=== PATIENT | male | born 1965 | race Caucasian/White ===

== ENCOUNTER 2017-12-12 19:00 | Inpatient (IN) | payer OTHER ==
[2017-12-12] MEDS ORDERED: Morphine 10 MG/ML VIAL ONE (19:43)
[2017-12-12] MEDS ORDERED: Pantoprazole 40 MG VIAL ONE (19:43)
[2017-12-12] MEDS ORDERED: Ondansetron HCl/PF 4 MG/2 ML Vial ONE (19:43)
[2017-12-12 19:45] LABS: #Basophils 0.1 thou/uL (0.0-0.2); #Eosinphils 0.1 thou/uL (0.0-0.7); #Lymphocytes 1.5 thou/uL (1.20-3.40); #Monocytes 0.8 thou/uL (0.11-0.59); #Neutrophils 8.2 thou/uL (1.40-6.50); %Basophils 0.7 % (0.0-1.0); %Eosinophils 0.9 % (0.0-10.0); %Lymphocytes 14.3 % (21.0-51.0); %Monocytes 7.2 % (0.0-10.0); %Neutrophils 76.8 % (42.0-75.0); Hemoglobin 16.4 g/dL (14.0-18.0); Mean Corpuscular HGB CONC 34.2 g/dL (32.0-36.0); Mean Corpuscular Hemoglobin 29.2 pg (27.0-31.0); Mean Corpuscular Volume 85.6 fl (80.0-94.0); Platelet Count 247 thou/uL (130-400); RBC Distribution Width 12.1 % (11.5-14.5); Red Blood Cell (RBC) Count 5.61 mill/uL (4.70-6.10); White Blood Cell (WBC) Count 10.6 thou/uL (4.8-10.8)
--- NOTE | 2017-12-12 19:54 | RAD ---
PORTABLE UPRIGHT FRONTAL CHEST RADIOGRAPH 12/12/17 COMPARISON: None. HISTORY: Chest pain. FINDINGS: Heart and mediastinal contours demonstrate mild prominence of the cardiac silhouette with no pneumoth orax, pleural fluid, focal consolidation, or alveolar edema. IMPRESSION: No focal consolidation or alveolar edema. POS: [facility]
[2017-12-12 19:59] LABS: ALT (SGPT) 242 U/L (8-55); AST (SGOT) 308 U/L (5-34); Albumin 4.3 g/dL (3.5-5.0); Alkaline Phosphatase 71 U/L (40-150); Anion Gap 19 mmol/L (10-20); BUN (Urea Nitrogen) 17 mg/dL (8.4-25.7); Bilirubin, Total 2.6 mg/dL (0.2-1.2); CK (CPK) 65 U/L (30-200); CKMB 1.4 ng/mL (0-6.6); Calc. Creatinine Clearance 0 mL/min (70-130); Calcium 9.6 mg/dL (7.8-10.44); Carbon Dioxide 21 mmol/L (22-29); Chloride 106 mmol/L (98-107); Estimated GFR-MDRD 68; Globulin 2.9 g/dL (2.4-3.5); Glucose 158 mg/dL (70-105); Protein, Total 7.2 g/dL (6.0-8.3); Sodium 142 mmol/L (136-145); Troponin I Less than 0.010 ng/mL (< 0.028)
[2017-12-12 19:59] LABS: Bilirubin Negative (Negative); Blood, Urine Negative (Negative); Clarity Clear (Clear); Glucose, Urine (Dipstick) Negative (Negative); Leukocyte Negative (Negative); Nitrite Negative (Negative); Protein, Urine (Dipstick) 30 mg/dL (Neg-Trace); pH, Urine 5.5 (5.0-9.0)
[2017-12-12 20:00] LABS: Bacteria/HPF Rare-Few HPF (None Seen); RBC/HPF None Seen HPF (0-3); Squamous Epithelial None Seen HPF (0-3); WBC/HPF None Seen HPF (0-3)
[2017-12-12] MEDS ORDERED: Ketorolac Tromethamine 30 MG/ML VIAL ONE (20:47)
[2017-12-12 21:12] LABS: Lipase 2184 U/L (8-78)
--- NOTE | 2017-12-12 22:03 | ULT ---
RIGHT UPPER QUADRANT ULTRASOUND 12/12/17 COMPARISON: None. HISTORY: Epigastric pain radiating to the back. TECHNIQUE: Multiplanar ramos scale sonographic imaging of the right upper quadrant obtained. FINDINGS: The pancreas is obscured by bowel gas. The hepatic parenchyma is heterogeneous and echogenic, suggest ing steatosis. No focal liver lesion is evident. There is sludge within the gallbladder lumen. In addition, there are numerous stones within the gallb ladder lumen, including a nonmobile stone in the region of the gallbladder neck. Gallbladder wall is normal in thickness. No pericholecystic fluid is seen. The common bile duct is mildly prominent/upper limits of normal in diameter, measuring just under 7 mm. The shiftman reports a negative Pendleton's sign but does indicate that the patient is on pain medica tion, which can lead to a false negative. Thus, clinical correlation is essential. Right kidney measures 11.1 cm in craniocaudal dimension and demonstrates no hydronephrosis. Echogenic focus within kidney may represent a punctate subcentimeter stone. IMPRESSION: 1. Numerous gallstones, including a nonmobile stone within the gallbladder neck. No gallbladder wall thickening or pericholecystic fluid. Veneer Stock Grader reports a negative Pendleton's sign but the patien t is on pain medication. If there is high clinical concern for acute cholecystitis, a followup hepato biliary scan may be beneficial. 2. Upper limits of normal/mildly prominent CBD. Correlation with LFTs suggested. POS: [facility]
[2017-12-12] MEDS ORDERED: Sodium Chloride 0.9% 1,000 ML IV SCH (22:37)
[2017-12-12] MEDS ORDERED: Ondansetron ODT 4 MG TAB SL PRN (22:37)
[2017-12-12] MEDS ORDERED: Ondansetron HCl/PF 4 MG/2 ML Vial IVP PRN (22:37)
[2017-12-12] MEDS ORDERED: Morphine 5 MG/ML SYRINGE SLOW IVP PRN (22:38)
[2017-12-12 22:42] VITALS: BMI 31.1
[2017-12-12] MEDS ORDERED: Fentanyl 100 MCG/2 ML VIAL SLOW IVP SCH (23:15)
--- NOTE | 2017-12-13 01:27 | PDOC.FPRHP ---
- History of Present Illness Chief Complaint: abdominal pain History of Present Illness: 52 yo male with history of HTN presented to outside ER for severe abdominal pain. Reports severe pain without improvement at 1600 today. Initially thought it was reflux. Took OTC dose of Tums but did not improve. Pain was so bad he reported difficulty with deep breathing. Worsened also with movement. Pain located ini epigastric region and radiates to sides and back. Described as sharp and stabbing. 8 to 910. Denies N/V, F/C, diarrhea. Also reports a recent increase in frequency of indigestion. Has been controlled with OTC antacids. Discussed code status with patient. Question addressed. Patient request to be full code. ED Course: Made NPO. Received NS fluid bolus. Toradol and morphine provided for pain relief. Labs and RUQ ultrasound performed. - Allergies/Adverse Reactions Allergies Allergy/AdvReac Type Severity Reaction Status Date / Time lisinopril AdvReac Mild Cough Verified 12/13/17 01:35 - Home Medications Medication Instructions Recorded Confirmed Type No Known [No Known] 12/12/17 12/12/17 History - History PMHx: HTN (Not taking Lisinopril due to cough. Does not see regular MD), GERD PSHx: Left knee, Right inguinal hernia repair FHx: Mother: Heart dz, DM. Father: Multiple myeloma Social: . Social alcohol use. Denies tobacco use and drug use. - Review of Systems General: reports: weight/appetite/sleep changes. denies: fever/chills, fatigue Eyes: denies: eye pain, vision changes ENT: denies: nasal congestion, rhinorrhea Respiratory: reports: shortness of breath. denies: cough, congestion Cardiovascular: denies: chest pain, palpitation, edema, orthopnea Gastrointestinal: reports: abdominal pain. denies: nausea, vomiting, diarrhea, constipation, GI bleeding Genitourinary: denies: incontinence, dysuria Skin: denies: rashes, lesions, jaundice Musculoskeletal: denies: pain, tenderness, stiffness, swelling Neurological: denies: numbness, syncope, weakness Psychological: denies: anxiety, depression - Vital signs BP: 161/110 HR: 80 RR: 18 Tmax: 98.3 Pox: 93% on 2L Wt: 104.3 kg - Physical Exam Constitutional: NAD, awake, alert and oriented HEENT: normocephalic and atraumatic, EOMI Neck: supple Heart: RRR, no murmurs/rubs/gallops, pulses present, no edema Lungs: CTAB, no respiratory distress, no wheezing Abdomen: soft -Abdomen: Tender to palpation in epigastric region. Mild anticipatory guarding. Musculoskeletal: normal structure, normal tone Neurological: no focal deficit Skin: no rash/lesions, capillary refill <2 seconds Heme/Lymphatic: no purpura, no petechia Psychiatric: normal mood and affect, good judgment and insight FMR H&P: Results - Labs Result Diagrams: 12/13/17 04:57 12/13/17 04:57 Lab results: WBC 10.6 thou/uL (4.8-10.8) 12/12/17 19:30 Hgb 16.4 g/dL (14.0-18.0) 12/12/17 19:30 Hct 48.0 % (42.0-52.0) 12/12/17 19:30 MCV 85.6 fl (80.0-94.0) 12/12/17 19:30 Plt Count 247 thou/uL (130-400) 12/12/17 19:30 Neutrophils % 76.8 % (42.0-75.0) H 12/12/17 19:30 Sodium 142 mmol/L (136-145) 12/12/17 19:30 Potassium 4.0 mmol/L (3.5-5.1) 12/12/17 19:30 Chloride 106 mmol/L (98-107) 12/12/17 19:30 Carbon Dioxide 21 mmol/L (22-29) L 12/12/17 19:30 BUN 17 mg/dL (8.4-25.7) 12/12/17 19:30 Creatinine 1.12 mg/dL (0.7-1.3) 12/12/17 19:30 Glucose 158 mg/dL (70-105) H 12/12/17 19:30 Calcium 9.6 mg/dL (7.8-10.44) 12/12/17 19:30 Total Bilirubin 2.6 mg/dL (0.2-1.2) H 12/12/17 19:30 AST 308 U/L (5-34) H 12/12/17 19:30 ALT 242 U/L (8-55) H 12/12/17 19:30 Alkaline Phosphatase 71 U/L (40-150) 12/12/17 19:30 Creatine Kinase 65 U/L (30-200) 12/12/17 19:30 CK-MB (CK-2) 1.4 ng/mL (0-6.6) 12/12/17 19:30 Serum Total Protein 7.2 g/dL (6.0-8.3) 12/12/17 19:30 Albumin 4.3 g/dL (3.5-5.0) 12/12/17 19:30 Lipase 2184 U/L (8-78) H 12/12/17 19:30 Urine Ketones Negative mg/dL (Negative) 12/12/17 19:46 Urine Blood Negative (Negative) 12/12/17 19:46 Urine Nitrite Negative (Negative) 12/12/17 19:46 Ur Leukocyte Esterase Negative (Negative) 12/12/17 19:46 Urine RBC None Seen HPF (0-3) 12/12/17 19:46 Urine WBC None Seen HPF (0-3) 12/12/17 19:46 Ur Squamous Epith Cells None Seen HPF (0-3) 12/12/17 19:46 Urine Bacteria Rare-Few HPF (None Seen) 12/12/17 19:46 Additional comment: RUQ U/S: Cholelithiasis with mildly prominent CBD - Radiology Interpretation Chest x-ray Status: image reviewed by me, report reviewed by me Additional comment: No acute abnormalities FMR H&P: A/P - Problem List (1) Acute pancreatitis Current Visit: Yes Status: Acute Code(s): K85.90 - ACUTE PANCREATITIS WITHOUT NECROSIS OR INFECTION, UNSP (2) HTN (hypertension) Current Visit: Yes Status: Chronic Code(s): I10 - ESSENTIAL (PRIMARY) HYPERTENSION Qualifiers: Hypertension type: essential hypertension Qualified Code(s): I10 - Essential (primary) hypertension (3) GERD (gastroesophageal reflux disease) Current Visit: Yes Status: Chronic Code(s): K21.9 - GASTRO-ESOPHAGEAL REFLUX DISEASE WITHOUT ESOPHAGITIS - Plan 1. Acute pancreatitis - Likely 2/2 gallstones; RUQ showed cholelithiasis with mildly enlarge CBD - TG 109 - Ca wnl - NPO - NS IVF at 225 ml/hr - Lipase >8000, 2184 - Bowel rest; advance diet once abdominal pain subsides - Pain control with fentanyl - Will likely need general surgery consult 2. HTN - Previously on lisinopril but was not taking it regularly due to cough - d/c lisinopril and add amlodipine for treatment of HTN - Monitor BP 3. GERD - Generally well controlled on OTC antacids 4. Acute hypoxia - Likely 2/2 shallow breathing - Encourage use of incentive spirometer - Wean O2 as appropriate Disposition/LOS: Admit to medical unit. Anticipate 2-3 day stay. FMR H&P: Upper Level - Plan Date/Time: 12/13/17 0125 IJelani MD have evaluated this patient and agree with findings/plan as outlined by chief internal auditor resident. Pertinent changes/additions are listed here. 52 yo male pmhx HTN presents to outside ER for severe, 9/10 epigastric abdominal pain radiating to flank and back that initially started around 1600 today. Characterized as sharp and stabbing. Exacerbated by position change and deep breathing; unrelieved by OTC tums. No associated N/V, F/C, or diarrhea. No prior episode of similar type symptoms. PE: Gen: NAD, AAOx3 ENT: nasal cannula in place CV: rrr, no m/g/r Lungs: CTAB, non-labored Abd: soft, severe TTP epigastric region, some anticipatory guarding Ext: no c/c/e A/P: 1) Acute mild gallstone pancreatitis: direct admission to medical. Lipase 2184. Bisap score 0. Low Connie and Apache[place] scores but will continue to monitor vitals. Keep NPO and continue IVF. Advance diet after abdominal pain subsides. Prn IV pain medication. Triglycerides high normal. No history of heavy alcohol or use of provoking medications. RUQ US revealed numerous gallstones with mildly prominent CBD. Trend CMPs. Will likely consult surgery for eventual cholecystectomy. 2) HTN: pt takes PAULA-I periodically but sounds like he suffers from associated cough with use; may need to be started on alternative agent while here and BPs are being monitored Attending Addendum - Attending Addendum Date/Time: 12/13/17 0140 I personally evaluated the patient and discussed the management with Dr. Parekh and Dr. Maldonado I agree with the History, Examination, Assessment and Plan documented above with any addition or exceptions noted below. 52 yo male with untreated HTN presents to outside ER for evaluation of severe, worsening epigastric pain found to have acute pancreatitis. At present pain well controlled. Not in any distress. VS stable. Afebrile. VS reviewed. BP elevated. Labs reviewed. Elevated LFTs. Lipase improved from outside ER. PE unchanged from documented above. A/P: Will admit on medical. Patient stable. Mild pancreatitis. Keep NPO. Control pain with IV medication. Possible related to gallstone pancreatitis. Cholelathiasis in gallbladder. Mild CBD dilation. Possibly recently passed stone or intermittently blocked duct. Triglycerides not extremely abnormal. No recent viral illnesses. No significant change in medication other than use of OTC antacids. Will likely need gen surg follow up. Barbie
[2017-12-13] MEDS ORDERED: Ondansetron HCl/PF 4 MG/2 ML Vial IVP PRN (01:36)
[2017-12-13] MEDS ORDERED: Promethazine HCl 25 MG/ML VIAL IM/IV PRN (01:36)
[2017-12-13] MEDS: Sodium Chloride 0.9% 1,000 ML IV SCH ×5 (02:21→20:20)
[2017-12-13] MEDS: Fentanyl 100 MCG/2 ML VIAL SLOW IVP PRN ×8 (02:43→22:14)
[2017-12-13 05:11] LABS: #Lymphocytes 0.9 thou/uL (1.20-3.40); #Monocytes 0.9 thou/uL (0.11-0.59); #Neutrophils 12.2 thou/uL (1.40-6.50); %Basophils 0.2 % (0.0-1.0); %Eosinophils 0.3 % (0.0-10.0); %Lymphocytes 6.3 % (21.0-51.0); %Monocytes 6.1 % (0.0-10.0); %Neutrophils 87.1 % (42.0-75.0); Hemoglobin 16.6 g/dL (14.0-18.0); Mean Corpuscular Hemoglobin 30.8 pg (27.0-31.0); Mean Corpuscular Volume 90.6 fl (80.0-94.0); Mean Platelet Volume 8.2 fL (7.4-10.4); Platelet Count 236 thou/uL (130-400); RBC Distribution Width 12.7 % (11.5-14.5); Red Blood Cell (RBC) Count 5.39 mill/uL (4.70-6.10); White Blood Cell (WBC) Count 14.1 thou/uL (4.8-10.8)
[2017-12-13 05:48] LABS: ALT (SGPT) 369 U/L (8-55); AST (SGOT) 296 U/L (5-34); Albumin 4.1 g/dL (3.5-5.0); Alkaline Phosphatase 74 U/L (40-150); Anion Gap 11 mmol/L (10-20); BUN (Urea Nitrogen) 15 mg/dL (8.4-25.7); Bilirubin, Total 3.1 mg/dL (0.2-1.2); Calc. Creatinine Clearance 123 mL/min (70-130); Calcium 8.9 mg/dL (7.8-10.44); Carbon Dioxide 26 mmol/L (22-29); Cardiac Risk 4.1 (Less than 4.5); Chloride 107 mmol/L (98-107); Cholesterol 224 mg/dl (< 200 Desired); Estimated GFR-MDRD 77; Globulin 2.9 g/dL (2.4-3.5); Glucose 126 mg/dL (70-105); HDL Cholesterol 54 mg/dL (>60 Neg Risk); LDL Cholesterol, Calculated 149 mg/dL; Potassium 3.9 mmol/L (3.5-5.1); Sodium 140 mmol/L (136-145); Triglycerides 106 mg/dL (Less than 150)
[2017-12-13] MEDS: Amlodipine 5 MG TAB PO SCH (08:05)
[2017-12-13] MEDS ORDERED: FLU VACC QS2017-18 36 mo. & older 0.5 ML SYRINGE IM ONE (09:00)
[2017-12-13] MEDS ORDERED: HYDROmorphone 0.5 MG/0.5 ML SYRINGE SLOW IVP PRN (17:54)
[2017-12-13] MEDS ORDERED: Sodium Chloride 0.9% 1,000 ML IV SCH (18:00)
[2017-12-13 19:16] LABS: ALT (SGPT) 373 U/L (8-55); AST (SGOT) 196 U/L (5-34); Albumin 3.6 g/dL (3.5-5.0); Alkaline Phosphatase 71 U/L (40-150); Anion Gap 9 mmol/L (10-20); BUN (Urea Nitrogen) 10 mg/dL (8.4-25.7); Bilirubin, Total 4.5 mg/dL (0.2-1.2); Calc. Creatinine Clearance 150 mL/min (70-130); Calcium 8.4 mg/dL (7.8-10.44); Carbon Dioxide 25 mmol/L (22-29); Chloride 107 mmol/L (98-107); Estimated GFR-MDRD Greater than 90; Globulin 2.8 g/dL (2.4-3.5); Glucose 107 mg/dL (70-105); Potassium 4.4 mmol/L (3.5-5.1); Protein, Total 6.4 g/dL (6.0-8.3); Sodium 137 mmol/L (136-145)
[2017-12-13] MEDS: Enoxaparin Sodium 40 MG/0.4 ML SYRINGE SC SCH (20:12)
[2017-12-13] MEDS: HYDROmorphone 2 MG TAB PO PRN (21:08)
--- NOTE | 2017-12-13 23:21 | CON ---
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 after mashed potatoes and potato ch ips, epigastric and generalized upper abdominal pain. He presented to the emergency room. In the em ergency room, he was noted to have white count of 10, hemoglobin of 16. He had a liter of IV fluid i n the ER and has had 250 mL of saline, IV since that time. His bilirubin was noted be 2.6, this morn ing is 3.1. AST 308, this morning 296. ALT 242, this morning. 369. Alkaline phosphatase 71, this morning is 74. Lipase on admission yesterday 2184 at 7:30 and today 2849 this morning. Ultrasound o btained reveals 7-mm bile duct and multiple gallstones and sludge. Negative Pendleton's sign. The tess ent states his pain has not improved since admission. Upon the consultation, I asked Dr. Cadena to se e him and he has seen him. Tentative plans for an ERCP tomorrow after a more aggressive hydration to day. ALLERGIES: LISINOPRIL. TOBACCO: None. ALCOHOL: Rarely, last consume more than two weeks ago. MEDICATIONS: Amlodipine daily 5 mg. PAST SURGICAL HISTORY: Right inguinal hernia in the past. Knee surgery, colonoscopy middle and a ye ar ago, normal. REVIEW OF SYSTEMS: Ten point noncontributory. SOCIAL HISTORY: The patient and his are present. The patient states that they just moved from [place], [place] recently. PHYSICAL EXAMINATION: VITAL SIGNS: 6 feet tall, 229 pounds, 31 BMI. The patient is in obvious distress. 100 degrees leyla ier today, 99.5 degrees now, heart rate 95, respiratory rate 18, 157/95. SKIN: Not apparent jaundice. LYMPHATICS: No lymphadenopathy. Neck, axillary or groin. NEUROLOGICAL: No focal neurological deficits. HEAD, EARS, EYES, NOSE AND THROAT: Unremarkable. Sclerae are nonicteric. LUNGS: Clear to auscultation. CARDIAC: Regular rate and rhythm without murmur or gallop. ABDOMEN: Soft, tenderness diffusely, more severe upper abdomen and epigastrium. EXTREMITIES: Unremarkable. LABORATORIES: As noted above. ASSESSMENT AND PLAN: 1. Severe pancreatitis. This is secondary to biliary disease. We would recommend ERCP most likely followed by laparoscopic cholecystectomy. He if does improve and his liver chemistries improved, con sideration for laparoscopic cholecystectomy, cholangiograms and an ERCP pending. Cholangiograms coul d be undertaken, but await and clinical course. I have tentatively scheduled him for laparoscopic ch olecystectomy after Dr. Cadena, completes ERCP tomorrow. However, if his pancreatitis does not improv e, I may defer cholecystectomy for another 24-48 hours. Will base this decision on his clinical cour se and condition and laboratories. Risks of infection, bleeding, visceral and biliary injury and ope n procedure, etcetera discussed and he consents. Questions answered. 2. Hypertension.
[2017-12-14] MEDS: Fentanyl 100 MCG/2 ML VIAL SLOW IVP PRN ×2 (00:09→04:35)
[2017-12-14] MEDS: Acetaminophen 1,000 MG in Premix Bag 1 BAG IVPB SCH ×5 (00:11→23:54)
--- NOTE | 2017-12-14 00:49 | CON ---
DATE OF CONSULTATION: 12/13/2017 REASON FOR CONSULTATION: Abnormal LFTs, possible choledocholithiasis, gallstone pancreatitis. CONSULTING PHYSICIAN: Dr. Gregory Longoria. HISTORY OF PRESENT ILLNESS: The patient is a 52-year-old male with a past medical history of hyperte nsion who presented with acute onset of abdominal pain. He states that he was in his usual state of health until approximately yesterday afternoon. He experienced the acute onset of right upper quadra nt abdominal pain characterized as a sharp/stabbing type sensation, 8/10 in severity with radiation t o the midepigastric region, left, and right flanks. He also has some associated subjective fever and chills during that time. With the worsening of his abdominal pain it prompted him to [facility] with admission in the ER where he was noted to have significant elevation in his LFTs as well as a lipase of approximately 2800 consistent with pancreatitis. He was subsequently given [address] of normal saline fluid bolus and admitted to the hospital for further evaluation. Of note, while he was at home, he had no clear alleviating or exacerbating factors. They were not ameliorated with the use of PPI or oral antacids. REVIEW OF SYSTEMS: Ten category review of systems was obtained with all responsive negative except f or the pertinent positives listed in the HPI. PAST MEDICAL HISTORY: As per HPI. PAST SURGICAL HISTORY: Knee surgery and right inguinal hernia repair. FAMILY HISTORY: Multiple myeloma (father), coronary artery disease (mother), Crohn's disease (sister ). SOCIAL HISTORY: Denies any tobacco or illicit drug use. Drinks approximately 1-2 drinks per month. PHYSICAL EXAMINATION: VITAL SIGNS: Temperature of 98.6, pulse 90, blood pressure 157/98, respiratory rate 20, satting 92% on 2 liters nasal cannula. GENERAL: The patient is lying in bed in moderate distress, visibly holding his abdomen. Alert and o riented x4. NECK: Supple. No JVD noted. CARDIOVASCULAR: Regular rate and rhythm with no discernible murmurs, gallops, or rubs. RESPIRATORY: Clear to auscultation bilaterally with no discernible wheezes or rales. ABDOMEN: Hypoactive bowel sounds, soft. No distention. Exquisite tenderness to palpation with both light and deep palpation in all abdominal quadrants, especially the midepigastric region. LABORATORY DATA: CBC with a white blood cell count of 14.1, hemoglobin 16.6, hematocrit 48.8, platel ets 236. Chemistry with a sodium of 140, potassium 3.9, chloride 107, CO2 26, BUN 15, creatinine 1.0 1, glucose 126, AST 296, ALT 369, alkaline phosphatase 74, total bilirubin 3.1, albumin 4.1, lipase 2 849. ASSESSMENT AND PLAN: The patient is a 52-year-old male with past medical history of hypertension pre senting with probable gallstone pancreatitis. Gallstone pancreatitis. Patient is presenting with acute onset of midepigastric and right upper quad rant abdominal pain with sharp stabbing nature and no clear alleviating or exacerbating factors. Upo n arrival to the ER, routine labs showed primarily an obstructive type pattern as well as significant ly elevated lipase consistent with a diagnosis of gallstone pancreatitis. The right upper quadrant u ltrasound obtained during this admission also showed numerous gallstones within the gallbladder and m ild dilatation of the common bile duct at 7 mm. At this point, with his imaging and laboratory findi ngs, it is strongly concerning for gallstone pancreatitis, but could be due to pancreatitis from othe r means with inflammation from the irritation of the pancreas itself (much less likely). At this poi nt in time, he would benefit from ERCP evaluation and possible extraction of choledocholithiasis. RECOMMENDATIONS: 1. Maintain the patient on n.p.o. status within preparation for procedure tomorrow or if needed more urgently overnight. 2. We will continue to trend LFTs. 3. We will plan for ERCP tomorrow morning with possible sphincterotomy and stone extraction 4. Pain control per primary team. 5. Agree with antibiotic administration as part of prophylaxis for ascending cholangitis. We will continue to follow. Please call with any questions.
[2017-12-14] MEDS: Sodium Chloride 0.9% 1,000 ML IV SCH ×7 (01:58→22:56)
[2017-12-14] MEDS: HYDROmorphone 2 MG TAB PO PRN ×3 (01:58→15:00)
[2017-12-14 05:59] LABS: #Eosinphils 0.1 thou/uL (0.0-0.7); #Monocytes 1.4 thou/uL (0.11-0.59); #Neutrophils 14.9 thou/uL (1.40-6.50); %Basophils 0.2 % (0.0-1.0); %Eosinophils 0.4 % (0.0-10.0); %Lymphocytes 5.7 % (21.0-51.0); %Monocytes 8.2 % (0.0-10.0); %Neutrophils 85.6 % (42.0-75.0); Hemoglobin 15.7 g/dL (14.0-18.0); Mean Corpuscular HGB CONC 33.1 g/dL (32.0-36.0); Mean Corpuscular Hemoglobin 30.5 pg (27.0-31.0); Mean Corpuscular Volume 92.2 fl (80.0-94.0); Mean Platelet Volume 8.3 fL (7.4-10.4); Platelet Count 206 thou/uL (130-400); RBC Distribution Width 12.9 % (11.5-14.5); Red Blood Cell (RBC) Count 5.13 mill/uL (4.70-6.10); White Blood Cell (WBC) Count 17.4 thou/uL (4.8-10.8)
[2017-12-14 06:15] LABS: ALT (SGPT) 270 U/L (8-55); AST (SGOT) 86 U/L (5-34); Albumin 3.3 g/dL (3.5-5.0); Alkaline Phosphatase 69 U/L (40-150); Anion Gap 11 mmol/L (10-20); BUN (Urea Nitrogen) 10 mg/dL (8.4-25.7); Bilirubin, Total 3.8 mg/dL (0.2-1.2); Calc. Creatinine Clearance 162 mL/min (70-130); Calcium 8.1 mg/dL (7.8-10.44); Carbon Dioxide 20 mmol/L (22-29); Chloride 109 mmol/L (98-107); Estimated GFR-MDRD Greater than 90; Globulin 2.8 g/dL (2.4-3.5); Glucose 95 mg/dL (70-105); Lipase 649 U/L (8-78); Potassium 4.3 mmol/L (3.5-5.1); Protein, Total 6.1 g/dL (6.0-8.3); Sodium 136 mmol/L (136-145)
[2017-12-14] MEDS ORDERED: Iothalamate Meglumine 60% 50 ML VIAL FS ONE (07:50)
[2017-12-14] MEDS ORDERED: Indomethacin 50 MG SUPP ONE (08:04)
[2017-12-14] MEDS: Amlodipine 5 MG TAB PO SCH ×2 (08:53→11:28)
[2017-12-14] MEDS ORDERED: Indomethacin 50 MG SUPP PR SCH (09:00)
[2017-12-14] MEDS ORDERED: Ondansetron HCl/PF 4 MG/2 ML Vial IVP PRN ×2 (10:05→15:53)
[2017-12-14] MEDS ORDERED: Promethazine HCl 25 MG/ML VIAL SLOW IVP PRN (10:05)
[2017-12-14] MEDS ORDERED: Promethazine HCl 25 MG/ML VIAL IM PRN ×2 (10:05→15:53)
--- NOTE | 2017-12-14 10:22 | OP ---
DATE OF PROCEDURE: 12/14/2017 INDICATION FOR PROCEDURE: Abnormal LFTs and possible choledocholithiasis. PROCEDURE PERFORMED: Endoscopic retrograde cholangiopancreatography with balloon dilation, biopsy an d sphincterotomy. DESCRIPTION OF PROCEDURE: After the risks, and benefits were explained to the patient including risk s of bleeding, infection, perforation, reactions to anesthesia, pain and/or pancreatitis, informed co nsent was obtained. The patient was then taken back to the endoscopy suite where general anesthesia and intubation was performed with anesthesia assistance. The standard duodenal scope was then introd uced into the mouth with intubation of the esophagus, stomach and proximal small intestine with the f indings listed below. The patient tolerated the procedure well with no immediate perioperative compl ications. FINDINGS: EGD: The limited views that were obtained with the side-viewing scope, normal appearing m ucosa was seen in the proximal, mid and distal esophagus as well as the cardia, fundus, body, antrum and incisura of the stomach. However, upon entry into the duodenal bulb, innumerable, small, clean b ased superficial ulcerations without any high risk stigmata of bleeding were seen in the duodenal bul b, as well as the second portion of the duodenum. Also present was a high grade duodenal stricture p resent at the duodenal sweep that was unable to be traversed with the duodenoscope initially. A 12 m m balloon was then passed through the duodenoscope and using fluoroscopy, confirmed by positioning on the other side of the stricture. The balloon was then inflated to 12 mm through the stricture with adequate stretching of the stricture achieved. The balloon was then removed from the patient and the duodenoscope was then able to be advanced into the second portion of the duodenum. Biopsies were ta alejandro both of the duodenal bulb and random gastric biopsies for evaluation of H. pylori status as well as the origin of ulcerations. Once inside the second portion of the duodenum, the ampulla was identi fied with no purulent material flowing from it. Using a sphincterotome and guidewire, access to the ampulla and common bile duct was achieved. Once the guidewire was placed in adequate position, a cho langiogram was performed with no discernible stones initially seen. The sphincterotomy was then perf ormed with adequate cut in the 11 o'clock position of the ampulla and no evidence of active bleeding at which point the sphincterotome was removed and a 9-12 mm balloon was passed through the duodenosco pe and into the small intestine. It was then advanced into the common bile duct with occlusion chola ngiogram again not showing anything with the common bile duct measuring approximately 7-8 mm in size. Then, using the balloon itself, it was advanced into roughly the hilum. The balloon was inflated t o 9 mm and successive balloon sweeps were then performed. On the initial balloon sweep, some stone d ebris was obtained as well as a 7-8 mm black pigmented stone. Two further balloon sweeps were perfor med with no other stone debris or stones obtained. At the end of the procedure, additional fluorosco py was performed with adequate drainage of the biliary tree observed. All equipment was then removed with the procedure terminated and the patient transferred to the PACU. IMPRESSION: 1. Innumerable, small, superficial clean based ulcerations seen in the duodenal bulb and second port ion of the duodenum, status post biopsies for evaluation. 2. High grade duodenal stricture noted at the duodenal sweep, now status post dilation with a 12 mm esophageal balloon. 3. Successful sphincterotomy with balloon extraction of a 7-8 mm black pigmented stone. RECOMMENDATIONS: 1. Continue to monitor clinically for signs of post-ERCP pancreatitis. 2. We will follow up on biopsy results with further therapy guided by the results. 3. We defer to General Surgery service as to the timing for cholecystectomy during this admission in light of acute pancreatitis. 4. Would continue with IV fluid administration at 250 mL per hour. 5. Agree with antibiotic administration at this time. We will continue to follow. Please call with any questions.
--- NOTE | 2017-12-14 10:33 | PDOC.FM ---
- Subjective Subjective: 52 yo M here with acute gallstone pancreatitis. He states that he pain is reasonably well controlled today with a pain of 5-6. He is currently NPO and awaiting ERCP and lap craig. There were no acute events over night. - Objective Vital Signs & Weight: Vital Signs (12 hours) Temp Pulse Resp BP BP Pulse Ox 12/14/17 08:53 85 12/14/17 07:04 98.7 F 85 18 142/86 H 91 L 12/14/17 04:00 98.3 F 87 22 H 154/95 H 91 L 12/14/17 00:00 98.1 F 89 22 H 153/89 H 91 L Weight Weight 104.3 kg I&O: 12/13/17 12/14/17 12/15/17 06:59 06:59 06:59 Intake Total 2425 Output Total 1000 Balance 1425 Result Diagrams: 12/14/17 05:21 12/14/17 05:21 <Fletcher Khan - Last Filed: 12/14/17 10:31> - Objective Vital Signs & Weight: Vital Signs (12 hours) Temp Pulse Resp BP BP Pulse Ox 12/14/17 11:28 85 12/14/17 07:04 98.7 F 85 18 142/86 H 91 L 12/14/17 04:00 98.3 F 87 22 H 154/95 H 91 L 12/14/17 00:00 98.1 F 89 22 H 153/89 H 91 L Weight Weight 104.3 kg I&O: 12/13/17 12/14/17 12/15/17 06:59 06:59 06:59 Intake Total 2425 Output Total 1000 Balance 1425 Result Diagrams: 12/14/17 05:21 12/14/17 05:21 <Jinny García - Last Filed: 12/14/17 11:44> Phys Exam - Physical Examination Constitutional: NAD HEENT: PERRLA, moist MMs Neck: no JVD Respiratory: clear to auscultation bilateral Cardiovascular: RRR, no significant murmur TTP throughout. Worst at epigastrum. BS x4 Musculoskeletal: no edema Lymphatic: no nodes Psychiatric: normal affect, A&O x 3 Skin: no rash, normal turgor <Fletcher Khan - Last Filed: 12/14/17 10:31> Dx/Plan (1) Acute pancreatitis Code(s): K85.90 - ACUTE PANCREATITIS WITHOUT NECROSIS OR INFECTION, UNSP Status: Acute QualifierTitle: Pancreatitis type: biliary (2) GERD (gastroesophageal reflux disease) Code(s): K21.9 - GASTRO-ESOPHAGEAL REFLUX DISEASE WITHOUT ESOPHAGITIS Status: Chronic QualifierTitle: Esophagitis presence: esophagitis presence not specified Qualified Code(s): K21.9 - Gastro-esophageal reflux disease without esophagitis (3) HTN (hypertension) Code(s): I10 - ESSENTIAL (PRIMARY) HYPERTENSION Status: Chronic QualifierTitle: Hypertension type: essential hypertension Qualified Code( s): I10 - Essential (primary) hypertension - Plan Plan: 1. Gallstone pancreatitis - s/p ERCP that was performed this morning. Duodenal ulcers were biopsied. Sphincter dilation performed. - Continue abx - Will monitor vitals and CBC for signs of infection - Continue IVF @ 250 - Monitor I/O - Ransons at 48 hours - 2 2. Cholecystitis - pt scheduled for lap craig today 3. HTN - elevated dt pain - monitor vitals as above <Fletcher Khan - Last Filed: 12/14/17 10:31> Attending Addendum - Attending Addendum Date/Time: 12/14/17 1143 I personally evaluated the patient and discussed the management with Dr. Khan. I agree with the History, Examination, Assessment and Plan documented above with any addition or exceptions noted below. Patient resting comfortably following ercp. Dr. Longoria will be doing an lap craig. Pt on levaquin. Continue to trend wbc. Will get blood cultures if patient spikes a fever. <Jinny García - Last Filed: 12/14/17 11:44>
--- NOTE | 2017-12-14 11:32 | RAD ---
ERCP: Date: 12/14/17 HISTORY: Gallstones. FINDINGS/IMPRESSION: Three spot fluoroscopic intraoperative images of the right upper quadrant during an ERCP demonstrate opacification of the common bile duct, hepatic ducts, and their branches without filling defects. A c ystic duct (remnant?) is also opacified on a single image. POS: ADELIA
[2017-12-14] MEDS ORDERED: PHENYLEPHRINE-NS 100 MCG/ML 10 ML SYRINGE ONE (15:47)
[2017-12-14] MEDS ORDERED: ePHEDrine/0.9% NaCl/PF SYRINGE 50 mg/10 ml ONE (15:47)
[2017-12-14] MEDS ORDERED: Propofol 200 MG/20 ML VIAL ONE (15:47)
[2017-12-14] MEDS ORDERED: Succinylcholine Chloride 20 MG/ML 10 ml SYRINGE FS ONE (15:47)
[2017-12-14] MEDS ORDERED: Lidocaine 1% PF 5 ML VIAL ONE (15:47)
[2017-12-14] MEDS ORDERED: Ondansetron HCl/PF 4 MG/2 ML Vial ONE (15:47)
[2017-12-14] MEDS ORDERED: Fentanyl 5000 MCG/250 ML CADD IVPB PRN (15:53)
[2017-12-14] MEDS ORDERED: diphenhydrAMINE 25 MG CAP PO PRN (15:53)
[2017-12-14] MEDS ORDERED: Naloxone HCl 0.4 mg/ml Vial IV PRN (15:53)
[2017-12-14] MEDS ORDERED: diphenhydrAMINE 50 MG/ML VIAL IM PRN (15:53)
[2017-12-14] MEDS ORDERED: Zolpidem Tartrate 5 MG TAB PO PRN (15:53)
[2017-12-14] MEDS ORDERED: Communication Order-Pharmacy FS SCH (16:00)
--- NOTE | 2017-12-14 16:31 | PRG ---
DATE OF SERVICE: 12/14/2017 SUBJECTIVE: Mr. Burger had an ERCP today with stone extraction. He still has severe pancreatitis, although his pain is improved slightly. He has quite a bit of abdominal distention from air insuffl ation from his ERCP today. He has not passed any gas or stool. He has not had any vomiting. OBJECTIVE: VITAL SIGNS: Temperature 98.6 degrees, heart rate 85, blood pressure 126/84. LUNGS: Clear to auscultation. ABDOMEN: Markedly distended and tympanitic. No bowel sounds. EXTREMITIES: Unremarkable. LABORATORY DATA: White count 17, hemoglobin 15. Sodium 136, potassium 4.3, BUN 10, creatinine 0.7, total bilirubin 3.8 this morning prior to ERCP, sphincterotomy, stone extraction and 4.5 bilirubin ye sterday. The patient's lipase has fallen from 2849 yesterday to 649. Abdomen is sandblast or shotblast equipment tender diffus janet, but less so than yesterday. He is still having quite a bit of pain. ASSESSMENT AND PLAN: 1. Severe pancreatitis. He still has an ileus. Would not advise p.o. narcotics for pain control. I have asked anesthesia to see him regarding a FISH NET MAKER pump and I have ordered that again. I have talked to the family about this and they are agreeable and desire this. 2. Choledocholithiasis. He will need a laparoscopic cholecystectomy when his abdominal distention a nd pancreatitis improves. Hopefully, this can be performed in the next 48-72 hours. 3. Poor mobility. He has not been out of bed except to go the bathroom. I have encouraged him to a mbulate in the hallways 5-10 times a day, should be up in the chair often. I have ordered an incenti ve spirometer yesterday and that is not yet at his bedside and he is not using it. I have ordered th at again. He is on DVT prophylaxis with Lovenox. I have ordered Levaquin due to his choledocholithi asis and will continue that although sphincterotomy, stone extraction has been performed.
[2017-12-14] MEDS: fentaNYL Citrate/PF 2,000 MCG in Sodium Chloride 0.9% 60 ML IV PRN (17:18)
[2017-12-14] MEDS: Ketorolac Tromethamine 30 MG/ML VIAL IVP SCH ×2 (18:26→23:52)
[2017-12-14] MEDS: Enoxaparin Sodium 40 MG/0.4 ML SYRINGE SC SCH (20:23)
[2017-12-15] MEDS ORDERED: Famotidine/PF 20 mg/2ml Vial SLOW IVP SCH (00:40)
[2017-12-15] MEDS: Sodium Chloride 0.9% 1,000 ML IV SCH ×2 (03:27→07:12)
[2017-12-15 05:23] LABS: #Eosinphils 0.1 thou/uL (0.0-0.7); #Lymphocytes 0.9 thou/uL (1.20-3.40); #Monocytes 1.2 thou/uL (0.11-0.59); #Neutrophils 12.1 thou/uL (1.40-6.50); %Basophils 0.1 % (0.0-1.0); %Eosinophils 0.6 % (0.0-10.0); %Lymphocytes 6.3 % (21.0-51.0); %Monocytes 8.5 % (0.0-10.0); %Neutrophils 84.5 % (42.0-75.0); Mean Corpuscular HGB CONC 32.8 g/dL (32.0-36.0); Mean Corpuscular Hemoglobin 30.2 pg (27.0-31.0); Mean Corpuscular Volume 91.9 fl (80.0-94.0); Mean Platelet Volume 8.6 fL (7.4-10.4); Platelet Count 185 thou/uL (130-400); Red Blood Cell (RBC) Count 4.63 mill/uL (4.70-6.10); White Blood Cell (WBC) Count 14.3 thou/uL (4.8-10.8)
[2017-12-15] MEDS: Ketorolac Tromethamine 30 MG/ML VIAL IVP SCH ×3 (05:34→18:01)
[2017-12-15 05:35] LABS: ALT (SGPT) 147 U/L (8-55); AST (SGOT) 31 U/L (5-34); Albumin 3.1 g/dL (3.5-5.0); Alkaline Phosphatase 54 U/L (40-150); Anion Gap 10 mmol/L (10-20); BUN (Urea Nitrogen) 14 mg/dL (8.4-25.7); Bilirubin, Total 2.1 mg/dL (0.2-1.2); Calc. Creatinine Clearance 171 mL/min (70-130); Calcium 7.5 mg/dL (7.8-10.44); Carbon Dioxide 20 mmol/L (22-29); Chloride 109 mmol/L (98-107); Estimated GFR-MDRD Greater than 90; Globulin 2.6 g/dL (2.4-3.5); Glucose 104 mg/dL (70-105); Lipase 150 U/L (8-78); Potassium 3.6 mmol/L (3.5-5.1); Protein, Total 5.7 g/dL (6.0-8.3); Sodium 135 mmol/L (136-145)
[2017-12-15] MEDS: Acetaminophen 1,000 MG in Premix Bag 1 BAG IVPB SCH ×3 (05:35→18:01)
--- NOTE | 2017-12-15 07:44 | PDOC.FM ---
- Subjective Subjective: Pt states that he feels much better today and that his pain has improved significantly. He has developed an ileus and has been walking multiple times per day. He is s/p ERCP yesterday and is waiting for a lap craig to happen in the next 24-48 hours pending his abdominal pain. There were no acute events over night. - Objective Vital Signs & Weight: Vital Signs (12 hours) Temp Pulse Resp BP BP Pulse Ox 12/15/17 03:31 98.0 F 96 20 136/80 91 L 12/15/17 00:00 99.0 F 99 20 155/102 H 91 L 12/14/17 20:00 99.2 F 100 20 158/86 H 91 L Weight Weight 104.3 kg I&O: 12/14/17 12/15/17 12/16/17 06:59 06:59 06:59 Intake Total 2425 Output Total 1000 Balance 1425 Result Diagrams: 12/15/17 04:41 12/15/17 04:41 <Fletcher Khan - Last Filed: 12/15/17 07:42> - Objective Vital Signs & Weight: Vital Signs (12 hours) Temp Pulse Resp BP BP Pulse Ox 12/15/17 08:00 98.3 F 91 18 92 L 12/15/17 07:47 98.3 F 91 18 150/97 H 92 L 12/15/17 03:31 98.0 F 96 20 136/80 91 L Weight Weight 104.3 kg I&O: 12/14/17 12/15/17 12/16/17 06:59 06:59 06:59 Intake Total 2425 Output Total 1000 1200 Balance 1425 -1200 Result Diagrams: 12/15/17 04:41 12/15/17 04:41 <Jinny García - Last Filed: 12/15/17 14:14> Phys Exam - Physical Examination Constitutional: NAD HEENT: PERRLA, moist MMs Neck: no JVD, supple, full ROM Respiratory: clear to auscultation bilateral Cardiovascular: RRR, no significant murmur Softer than yesterday. Significantly improved TTP, though still mildly TTP normal BS x4. Still distended, but improved Musculoskeletal: no edema Neurological: non-focal, normal sensation, moves all 4 limbs Psychiatric: normal affect, A&O x 3 Skin: no rash, normal turgor <Fletcher Khan - Last Filed: 12/15/17 07:42> Dx/Plan (1) Acute pancreatitis Code(s): K85.90 - ACUTE PANCREATITIS WITHOUT NECROSIS OR INFECTION, UNSP Status: Acute QualifierTitle: Pancreatitis type: biliary (2) GERD (gastroesophageal reflux disease) Code(s): K21.9 - GASTRO-ESOPHAGEAL REFLUX DISEASE WITHOUT ESOPHAGITIS Status: Chronic QualifierTitle: Esophagitis presence: esophagitis presence not specified Qualified Code(s): K21.9 - Gastro-esophageal reflux disease without esophagitis (3) HTN (hypertension) Code(s): I10 - ESSENTIAL (PRIMARY) HYPERTENSION Status: Chronic QualifierTitle: Hypertension type: essential hypertension Qualified Code( s): I10 - Essential (primary) hypertension - Plan Plan: 1. Gallstone pancreatitis - s/p ERCP that was performed this morning. Duodenal ulcers were biopsied. Sphincter dilation performed. - Continue abx - Will monitor vitals and CBC for signs of infection - Continue IVF @ 250. Move to LR dt development on acidosis - Monitor I/O - Ransons at 48 hours - 2 - PO opiates have been DC'd dt ileus. ENERGY OPERATIONS VICE PRESIDENT in place. 2. Cholecystitis - pt to have for lap craig when symptoms improve 3. HTN - elevated dt pain - monitor vitals as above <Fletcher Khan - Last Filed: 12/15/17 07:42> Attending Addendum - Attending Addendum Date/Time: 12/15/17 1412 I personally evaluated the patient and discussed the management with Dr. Khan. I agree with the History, Examination, Assessment and Plan documented above with any addition or exceptions noted below. 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 He has an additional diagnosis of gerd. Was given pepcid overnight for severe heart burn and pain subsided. Changing IV fluids to help with electrolyte abnormalities. <Jinny García - Last Filed: 12/15/17 14:14>
[2017-12-15] MEDS: Lactated Ringer's 1,000 ML IV SCH ×3 (09:01→18:01)
[2017-12-15] MEDS: Famotidine/PF 20 mg/2ml Vial SLOW IVP SCH ×2 (09:01→20:40)
--- NOTE | 2017-12-15 18:02 | PRG ---
DATE OF SERVICE: 12/15/2017 SUBJECTIVE: Rojelio Burger is doing well today, feels somewhat better, but he is still having abdominal pain. OBJECTIVE: VITAL SIGNS: Temperature 98.3 degrees, respirations 18, blood pressure 150/97. LUNGS: Clear to auscultation. CARDIAC: Regular rate and rhythm without murmur or gallop. ABDOMEN: Soft, less tender. LABORATORY DATA: White count 14, hemoglobin 14. Bilirubin down to 2.1 after sphincterotomy, stone e xtraction yesterday. Transaminases improved. ASSESSMENT AND PLAN: Biliary pancreatitis, improving. We will plan laparoscopic cholecystectomy pro bably Saturday or Saturday. He has good mobility levels. Hopefully, he can be discharged home later in the weekend.
[2017-12-15] MEDS: Enoxaparin Sodium 40 MG/0.4 ML SYRINGE SC SCH (20:40)
--- NOTE | 2017-12-16 00:36 | PRG ---
DATE OF SERVICE: 12/15/2017 REASON FOR CONSULTATION: Gallstone pancreatitis. SUBJECTIVE: The patient states that he is doing better this morning with improvement of his abdomina l pain, but continues to persist in the midepigastric region. Currently, denies any nausea, vomiting , fevers, chills or overt GI bleeding. OBJECTIVE: VITAL SIGNS: Temperature 98.3, pulse 91, blood pressure 150/97, respiratory rate 18, satting 92% on 2 liters nasal cannula. GENERAL: The patient is lying in bed, in no acute distress. Alert and oriented x4. CARDIOVASCULAR: Regular rate and rhythm with no discernible murmurs, gallops or rubs. RESPIRATORY: Clear to auscultation bilaterally. ABDOMEN: Normoactive bowel sounds. Soft. Tenderness to palpation in the upper abdominal quadrants. EXTREMITIES: No cyanosis, clubbing or edema. LABORATORY DATA: CBC with a white blood cell count of 14.3, hemoglobin 14, hematocrit 42.6, platelet s 185. Chemistry with a sodium of 135, potassium 3.6, chloride 109, CO2 of 20, BUN 14, creatinine 0. 73, glucose 104, AST 31, ALT 147, alkaline phosphatase 54, total bilirubin 2.1. IMAGING DATA: ERCP performed on 12/14/2017 showed innumerable small superficial clean based ulcerati ons within the duodenal bulb and second portion of the duodenum. They were biopsied for evaluation. He was also noted to have a high-grade duodenal stricture at the duodenal sweep that was dilated wit h a 12-mm esophageal balloon. ERCP was successful and extraction of a 7-8 mm black pigmented stone. ASSESSMENT AND PLAN: The patient is a 52-year-old man with past medical history of hypertension, pre senting with gallstone pancreatitis. Gallstone pancreatitis: The patient underwent ERCP on 12/14/2017 with successful extraction of a 7-8 mm black pigmented stone. Since ERCP, he has had improvement in his abdominal pain as well as signi ficant decrease in his LFTs and total bilirubin. He was also noted to have multiple ulcerations with in the duodenal bulb and second portion of the duodenum with an unknown etiology at this time. Wheth er or not this was due to the inflammatory cascade associated with gallstone pancreatitis, it is unkn own with biopsies hopefully shedding more light on the subject. At this time, his abdominal pain is improved with his pancreatitis, slowly resolving with pain control and IV fluid administration. RECOMMENDATIONS: 1. We will consider advancing patient's diet to a clear liquid diet given mild uncomplicated pancrea titis and increased efficacy with enteral feeding. 2. We would continue pain control and IV fluids as you are doing. 3. We will follow up on the biopsy results obtained during the recent ERCP. 4. We will defer to General Surgery Service for cholecystectomy during this hospitalization.
[2017-12-16] MEDS: Lactated Ringer's 1,000 ML IV SCH ×7 (00:38→19:34)
[2017-12-16] MEDS: Ketorolac Tromethamine 30 MG/ML VIAL IVP SCH ×4 (00:38→19:33)
[2017-12-16] MEDS: Acetaminophen 1,000 MG in Premix Bag 1 BAG IVPB SCH ×5 (00:44→18:02)
[2017-12-16 05:30] LABS: #Eosinphils 0.3 thou/uL (0.0-0.7); #Lymphocytes 1.1 thou/uL (1.20-3.40); #Monocytes 0.9 thou/uL (0.11-0.59); #Neutrophils 8.5 thou/uL (1.40-6.50); %Basophils 0.4 % (0.0-1.0); %Eosinophils 2.5 % (0.0-10.0); %Lymphocytes 9.7 % (21.0-51.0); %Monocytes 8.4 % (0.0-10.0); Hemoglobin 13.1 g/dL (14.0-18.0); Mean Corpuscular HGB CONC 34.2 g/dL (32.0-36.0); Mean Corpuscular Hemoglobin 31.6 pg (27.0-31.0); Mean Corpuscular Volume 92.4 fl (80.0-94.0); Mean Platelet Volume 8.7 fL (7.4-10.4); Platelet Count 184 thou/uL (130-400); RBC Distribution Width 12.9 % (11.5-14.5); Red Blood Cell (RBC) Count 4.13 mill/uL (4.70-6.10); White Blood Cell (WBC) Count 10.8 thou/uL (4.8-10.8)
[2017-12-16 05:37] LABS: ALT (SGPT) 86 U/L (8-55); AST (SGOT) 19 U/L (5-34); Albumin 2.9 g/dL (3.5-5.0); Alkaline Phosphatase 46 U/L (40-150); Anion Gap 11 mmol/L (10-20); BUN (Urea Nitrogen) 10 mg/dL (8.4-25.7); Bilirubin, Total 1.5 mg/dL (0.2-1.2); Calc. Creatinine Clearance 181 mL/min (70-130); Calcium 7.9 mg/dL (7.8-10.44); Carbon Dioxide 22 mmol/L (22-29); Chloride 108 mmol/L (98-107); Estimated GFR-MDRD Greater than 90; Globulin 2.5 g/dL (2.4-3.5); Glucose 84 mg/dL (70-105); Potassium 3.3 mmol/L (3.5-5.1); Protein, Total 5.4 g/dL (6.0-8.3); Sodium 138 mmol/L (136-145)
--- NOTE | 2017-12-16 09:22 | PDOC.FM ---
- Subjective Subjective: Patient's pain is improved some. He describes it as 5/10, which is better than yesterday. He had a bad dream associated with the LOCKER PLANT ATTENDANT pump where he thought the mafia was coming to get him every time he pushed the pump. He denies N/V/D/C, fever, chills. He reports that he has been up walking around some. He has some SOB, but has been using the incentive spirometer all day yesterday. - Objective MAR Reviewed: Yes Vital Signs & Weight: Vital Signs (12 hours) Temp Pulse Resp BP BP Pulse Ox 12/16/17 08:41 98.5 F 73 20 152/89 H 91 L 12/16/17 04:41 91 L 12/16/17 00:00 98.2 F 91 20 143/98 H 91 L Weight Weight 104.3 kg I&O: 12/15/17 12/16/17 12/17/17 06:59 06:59 06:59 Intake Total 49 Output Total 1200 Balance -1151 Result Diagrams: 12/16/17 04:45 12/16/17 04:46 Phys Exam - Physical Examination Constitutional: NAD HEENT: moist MMs Respiratory: no wheezing, no rales, no rhonchi, clear to auscultation bilateral Cardiovascular: RRR, no significant murmur, no rub Gastrointestinal: positive bowel sounds distended, mildly tender in COLT region, no rebound or guarding Musculoskeletal: no edema, pulses present Psychiatric: normal affect, A&O x 3 Dx/Plan (1) Acute pancreatitis Code(s): K85.90 - ACUTE PANCREATITIS WITHOUT NECROSIS OR INFECTION, UNSP Status: Acute Qualifiers: Pancreatitis type: biliary (2) GERD (gastroesophageal reflux disease) Code(s): K21.9 - GASTRO-ESOPHAGEAL REFLUX DISEASE WITHOUT ESOPHAGITIS Status: Chronic Qualifiers: Esophagitis presence: esophagitis presence not specified Qualified Code(s) : K21.9 - Gastro-esophageal reflux disease without esophagitis (3) HTN (hypertension) Code(s): I10 - ESSENTIAL (PRIMARY) HYPERTENSION Status: Chronic Qualifiers: Hypertension type: essential hypertension Qualified Code(s): I10 - Essential (primary) hypertension - Plan Plan: 1. Gallstone pancreatitis - s/p ERCP that was performed this morning. Duodenal ulcers were biopsied. Sphincter dilation performed. - Continue Levaquin day 3 - Will monitor vitals and CBC for signs of infection - Continue LR @ 250 - Monitor I/O - Ransons at 48 hours - 2 - PO opiates have been DC'd dt ileus. LOCKER PLANT ATTENDANT in place. - Advance diet to liquids today 2. Cholecystitis - pt to have for lap craig when symptoms improve, likely Saturday or Saturday - General Surgery on board, appreciate recs 3. HTN - elevated dt pain - monitor vitals as above 4. Hypokalemia Potassium 3.3 this AM - Will replete
[2017-12-16] MEDS: Famotidine/PF 20 mg/2ml Vial SLOW IVP SCH ×2 (10:42→21:23)
[2017-12-16] MEDS ORDERED: Potassium Chloride 20 MEQ TAB PO SCH (11:15)
[2017-12-16] MEDS ORDERED: Benzocaine 20% Spray 60 ML CAN FS SCH (11:45)
[2017-12-16] MEDS: Lidocaine 2% Jelly 5 ML TUBE TOP SCH ×2 (13:27→13:51)
--- NOTE | 2017-12-16 14:53 | RAD ---
UPRIGHT AND SUPINE ABDOMINAL RADIOGRAPHS: Date: 12-16-17 History: Abdominal distention post ERCP. FINDINGS: Lung bases are not well visualized on this exam although there is suggestion of atelectasis at each l suzette base. Calcifications are likely related to gallbladder calculi. There are distended gas filled lo ops of small bowel in the mid abdomen left upper quadrant which may be related to recent ERCP. No obv ious free intraperitoneal gas is seen beneath the hemidiaphragms on the upright image. Phleboliths ov erlie the pelvis. No additional suspicious calcifications are seen. Mild degenerative changes are see n in the spine. IMPRESSION: 1. Dilated gas filled loops of small bowel in the left upper quadrant most likely related to recent E CATALYST CONCENTRATION OPERATOR. If there is concern for bowel obstruction, CT scan can be performed for further evaluation. 2. Cholelithiasis. 3. Bibasilar atelectasis. POS: INDRA
--- NOTE | 2017-12-16 18:15 | PRG ---
DATE OF SERVICE: 12/16/2017 SUBJECTIVE: Mr. Burger is doing well today. OBJECTIVE: VITAL SIGNS: Temperature 99.1 degrees, pulse 80, blood pressure 154/90. LUNGS: Clear to auscultation. CARDIAC: Regular rate and rhythm without murmur or gallop. ABDOMEN: Distended, tympanitic. EXTREMITIES: Unremarkable. Nasogastric tube has been placed. Unfortunately, a small caliber one, p robably 12 [place], it is 70 cm, output is about 200 mL. IMAGING: Plain abdominal x-ray today reveals ileus type pattern with gas in the colon and the small bowel. NG tube was placed after this x-ray, so does not visible. LABORATORY DATA: White count 10 down from 14 yesterday, hemoglobin 13, stable. Sodium 138, potassiu m 3.3, total bilirubin down to 1.5, lipase 150 yesterday. ASSESSMENT AND PLAN: Abdominal distention. There is more present than expected based on radiologica l findings and gas pattern. This may be more fluid. We will obtain a CT scan of abdomen and pelvis tomorrow. I have discussed with the patient and family importance of mobility up in chair and ambula tion. I did have him scheduled for laparoscopic cholecystectomy, but we will hold off on that later in the week. Continue medical care. Patient continues on Levaquin.
[2017-12-16] MEDS: fentaNYL Citrate/PF 2,000 MCG in Sodium Chloride 0.9% 60 ML IV PRN (21:19)
[2017-12-16] MEDS: Enoxaparin Sodium 40 MG/0.4 ML SYRINGE SC SCH (21:23)
[2017-12-17] MEDS: Acetaminophen 1,000 MG in Premix Bag 1 BAG IVPB SCH ×2 (00:28→19:06)
--- NOTE | 2017-12-17 01:24 | PRG ---
DATE OF SERVICE: 12/16/2017 REASON FOR CONSULTATION: Gallstone pancreatitis. SUBJECTIVE: The patient states that he has had worsening of his abdominal pain today as well as sign ificantly increased abdominal distention contributing to the pain, currently on LACQUER PIN PRESS OPERATOR pump which he has been extensively using. He has been able to get up and walk around, but this has not provided any i mmediate relief. Currently, denies any nausea, vomiting, fevers, chills or overt GI bleeding. OBJECTIVE: VITAL SIGNS: Temperature of 98.3, pulse 91, blood pressure 148/76, respiratory rate 20, satting 90% on room air. GENERAL: The patient is lying in bed in mild distress. He is alert and oriented x4. CARDIOVASCULAR: Regular rate and rhythm with no discernible murmurs, gallops or rubs. RESPIRATORY: Clear to auscultation bilaterally. ABDOMEN: Normoactive bowel sounds. [id number] abdominal distention, mildly tenderness to pa lpation in all abdominal quadrants. EXTREMITIES: No cyanosis, clubbing or edema. LABORATORY DATA: CBC with white blood cell count of 10.8, hemoglobin 13.1, hematocrit 38.2, platelet s 184. Chemistry with a sodium of 138, potassium 3.3, chloride 108, CO2 of 22, BUN 10, creatinine 0. 69, glucose 84, AST 19, ALT 86, alkaline phosphatase 46, total bilirubin 1.5. IMAGING DATA: No current GI imaging is available for review. ASSESSMENT AND PLAN: The patient is a 52-year-old man with past medical history of hypertension pres enting with gallstone pancreatitis. Gallstone pancreatitis: The patient underwent an ERCP on 12/14/2017 with successful extraction of a 7-8 mm black pigmented stone. Initially after the ERCP, he had improvement of his abdominal pain, bu t this has since worsened over the last 24 hours and associated with increased abdominal distention. At this time, the origin of his abdominal pain and distention could be due to narcotic use associate d with pain control with gallstone pancreatitis resulting in possible ileus. He could also have an i leus related to the inflammatory cascade with his current pancreatitis. Lastly, with the significant duodenal stricture and ulceration seen within the duodenal bulb, it is unclear if this is further co ntributing to his current clinical status with biopsies of the region is pending at this time. RECOMMENDATIONS: 1. We would decrease IV fluid to 50-110 mL per hour given adequate fluid resuscitation with gallston e pancreatitis and possible fluid overload at this point. 2. We would consider advancing the patient's diet if hungry. 3. We would avoid narcotic administration if possible given its contribution to possible ileus pictu re. 4. We will follow up with the biopsy results obtained during a recent ERCP. 5. Defer to General Surgery service for timing of cholecystectomy during this hospitalization. 6. We will obtain a KUB at the current point in time for possible etiology for his abdominal distent ion. We will also place an NG tube at this time for decompression of the upper GI tract given probab le ileus. We will continue to follow. Please call with any questions.
[2017-12-17 08:01] LABS: ALT (SGPT) 62 U/L (8-55); AST (SGOT) 18 U/L (5-34); Albumin 3.1 g/dL (3.5-5.0); Alkaline Phosphatase 50 U/L (40-150); Anion Gap 13 mmol/L (10-20); BUN (Urea Nitrogen) 12 mg/dL (8.4-25.7); Bilirubin, Total 1.2 mg/dL (0.2-1.2); Calc. Creatinine Clearance 178 mL/min (70-130); Calcium 8.2 mg/dL (7.8-10.44); Carbon Dioxide 23 mmol/L (22-29); Chloride 107 mmol/L (98-107); Estimated GFR-MDRD Greater than 90; Globulin 2.8 g/dL (2.4-3.5); Glucose 85 mg/dL (70-105); Potassium 3.2 mmol/L (3.5-5.1); Protein, Total 5.9 g/dL (6.0-8.3); Sodium 140 mmol/L (136-145)
[2017-12-17] MEDS: Famotidine/PF 20 mg/2ml Vial SLOW IVP SCH ×2 (08:49→20:53)
--- NOTE | 2017-12-17 09:32 | PDOC.FM ---
- Subjective Subjective: Patient reports worsened abdominal fullness this AM. He denies much abdominal pain, but does not feel like the NG tube is helping. He denies N/V. He has not had a BM since . - Objective MAR Reviewed: Yes Vital Signs & Weight: Vital Signs (12 hours) Temp Pulse Resp BP BP BP Pulse Ox 12/17/17 08:05 98.0 F 73 16 155/90 H 96 12/17/17 04:00 98.1 F 67 22 H 146/78 H 95 12/17/17 00:00 98.0 F 75 20 135/72 94 L Weight Admit Weight 104.3 kg Weight 104.3 kg I&O: 12/16/17 12/17/17 12/18/17 06:59 06:59 06:59 Intake Total 49 1320 Output Total 1200 440 Balance -1151 880 Result Diagrams: 12/16/17 04:45 12/17/17 07:38 <Steph Reynoso - Last Filed: 12/17/17 09:28> - Objective Vital Signs & Weight: Vital Signs (12 hours) Temp Pulse Resp BP BP BP Pulse Ox 12/17/17 08:05 98.0 F 73 16 155/90 H 96 12/17/17 04:00 98.1 F 67 22 H 146/78 H 95 12/17/17 00:00 98.0 F 75 20 135/72 94 L Weight Admit Weight 104.3 kg Weight 104.3 kg I&O: 12/16/17 12/17/17 12/18/17 06:59 06:59 06:59 Intake Total 49 1320 43 Output Total 1200 440 Balance -1151 880 43 Result Diagrams: 12/16/17 04:45 12/17/17 07:38 <Lee Dangelo - Last Filed: 12/17/17 10:52> - Objective Vital Signs & Weight: Vital Signs (12 hours) Temp Pulse Resp BP BP Pulse Ox 12/17/17 08:05 98.0 F 73 16 155/90 H 96 12/17/17 08:00 98.0 F 73 16 12/17/17 04:00 98.1 F 67 22 H 146/78 H 95 Weight Admit Weight 104.3 kg Weight 104.3 kg I&O: 12/16/17 12/17/17 12/18/17 06:59 06:59 06:59 Intake Total 49 1320 43 Output Total 1200 440 Balance -1151 880 43 Result Diagrams: 12/16/17 04:45 12/17/17 07:38 <Eneida Parnell - Last Filed: 12/17/17 14:43> Phys Exam - Physical Examination Constitutional: NAD HEENT: moist MMs Respiratory: no wheezing, no rales, no rhonchi, clear to auscultation bilateral Cardiovascular: RRR, no significant murmur, no rub Gastrointestinal: soft, non-tender distended, bowel sounds hypoactive Musculoskeletal: no edema, pulses present Neurological: non-focal, moves all 4 limbs Psychiatric: normal affect, A&O x 3 Skin: no rash, cap refill <2 seconds <Steph Reynoso - Last Filed: 12/17/17 09:28> Dx/Plan (1) Acute pancreatitis Code(s): K85.90 - ACUTE PANCREATITIS WITHOUT NECROSIS OR INFECTION, UNSP Status: Acute QualifierTitle: Pancreatitis type: biliary (2) GERD (gastroesophageal reflux disease) Code(s): K21.9 - GASTRO-ESOPHAGEAL REFLUX DISEASE WITHOUT ESOPHAGITIS Status: Chronic QualifierTitle: Esophagitis presence: esophagitis presence not specified Qualified Code(s): K21.9 - Gastro-esophageal reflux disease without esophagitis (3) HTN (hypertension) Code(s): I10 - ESSENTIAL (PRIMARY) HYPERTENSION Status: Chronic QualifierTitle: Hypertension type: essential hypertension Qualified Code( s): I10 - Essential (primary) hypertension - Plan Plan: 1. Gallstone pancreatitis - s/p ERCP. Duodenal ulcers were biopsied. Sphincter dilation performed. - Continue Levaquin day 4 - Will monitor vitals and CBC for signs of infection - Continue LR @ 50 - Monitor I/O - Ransons at 48 hours - 2 - PO opiates have been DC'd dt ileus. MEDICAL PHYSIOLOGIST in place. - Advance diet to liquids 2. Cholecystitis - pt to have for lap craig when ileus improves - General Surgery on board, appreciate recs 3. Ileus Likely 2/2 ERCP and opioid use. NG in place to suction, but patient does not feel like this has helped with his distention. - GI on board, appreciate recs - Encouraged pt to only use MEDICAL PHYSIOLOGIST when necessary. - Will give patient sleep medication as this is when he uses MEDICAL PHYSIOLOGIST the most. 4. HTN - elevated dt pain - monitor vitals as above 5. Hypokalemia Potassium 3.2 this AM - Will replete - Will check magnesium <Steph Reynoso - Last Filed: 12/17/17 09:28> - Plan Plan: I personally evaluated patient and discussed the case with Dr. Reynoso. I agree with her exam, assessment, and plan with the exceptions as listed below. 1) Gallstone pancreatitis - Continue NG tube feeds. Advance diet as tolerated and guided by GI. Continue MEDICAL PHYSIOLOGIST pump for pain. 2) Cholecystitis - Lap craig when ileus improved 3) Ileus - ERCP vs opioid use - Continue NG tube. Will minimize opioid use if patient's pain allows <Lee Dangelo - Last Filed: 12/17/17 10:52> Attending Addendum - Attending Addendum Date/Time: 12/17/17 1441 I personally evaluated the patient and discussed the management with Dr. Reynoso on 12/17/17. I agree with the History, Examination, Assessment and Plan documented above with any addition or exceptions noted below. Patient with no bowel sounds, continued output through NG tube on LIWS. Discussed with him decreasing use of MEDICAL PHYSIOLOGIST/opiates for pain, as it is likely contributing (if not causing) his ileus. Electrolytes are normal, will continue to monitor. Encouraged ambulation. Going for CT abd today. <Eneida Parnell - Last Filed: 12/17/17 14:43>
[2017-12-17] MEDS ORDERED: Potassium Chloride 20 MEQ TAB PO SCH (09:45)
[2017-12-17] MEDS: diphenhydrAMINE 50 MG/ML VIAL IVP PRN (13:27)
[2017-12-17] MEDS ORDERED: HumaLOG 300 UNITS/3 ML VIAL SC PRN (14:42)
[2017-12-17] MEDS ORDERED: Dextrose 50% Abboject 50 ML SYRINGE SLOW IVP PRN (14:42)
[2017-12-17] MEDS ORDERED: Dextrose 5% in Water 1,000 ML IV PRN (14:42)
[2017-12-17] MEDS ORDERED: Lactated Ringer's 1,000 ML IV SCH (14:43)
[2017-12-17] MEDS ORDERED: Potassium Chloride 40 MEQ in Premix Bag 1 BAG IVPB SCH ×2 (14:45→17:00)
[2017-12-17] MEDS ORDERED: Furosemide 40 MG/4 ML VIAL SLOW IVP SCH (14:45)
--- NOTE | 2017-12-17 14:50 | CT ---
CT ABDOMEN WITH AND WITHOUT IV CONTRAST CT PELVIS WITH IV CONTRAST: Date: 12-17-17 History: Severe pancreatitis. Comparison: None available. FINDINGS: There are small bilateral pleural effusions and passive atelectasis. A very tiny paracardial effusion is present. A nasogastric tube is noted in place with the tip of the nasogastric tube in the distal body of the s tomach. There is cholelithiasis with multiple gallbladder calculi seen with larger calculus in the gallbladde r lumen measuring approximately 2.2 cm. There is gas within the extrahepatic common duct as well as i n the gallbladder which may be related to recent instrumentation. There are peripancreatic inflammatory changes noted suggesting pancreatitis. No pancreatic or peripan creatic fluid collection is identified. The spleen, bilateral adrenal glands, kidneys, and urinary bladder demonstrate a normal CT appearance . Prostate gland is enlarged in transverse dimensions measuring 6 cm. There are a few mildly dilated lo ops of small bowel with more normal caliber distal small bowel loops. No obvious transition point is seen to suggest a mechanical small bowel obstruction. Findings may be related to ileus secondary to p ancreatitis. There is mild subcutaneous edema seen. There is a small fat density lesion seen in the medial aspect of the right perivertebral musculature posterior to the level of the T12 vertebral body likely related to small intramuscular lipoma. There is a fat containing umbilical hernia with small amount of fluid within the hernia defect. IMPRESSION: 1. CT evidence of pancreatitis without pancreatic or peripancreatic fluid collection seen. 2. Gas within the bile duct and gallbladder which may be secondary to recent instrumentation. Clinica l correlation is recommended. 3. Cholelithiasis. 4. Small bilateral pleural effusions and atelectasis. 5. Dilated loops of proximal small bowel which may be related to ileus as a definite abrupt transitio n is not seen to suggest a mechanical small bowel obstruction. 6. Colonic diverticulosis. 7. No CT evidence of appendicitis. 8. Prominent fat containing left inguinal hernia with fluid seen in the hernia defect. 9. Enlargement of the prostate gland. POS: [facility]
[2017-12-17] MEDS: Lactated Ringer's 1,000 ML IV SCH (15:54)
[2017-12-17] MEDS: Albumin 25% 25 GM/100 ML BOT IVPB SCH ×2 (16:14→20:53)
--- NOTE | 2017-12-17 16:45 | RAD ---
PORTABLE CHEST ONE VIEW: Date: 12-17-17 Time: 3:12 p.m. History: Central line placement. Pancreatitis. FINDINGS/IMPRESSION: Comparison is made with exam of 12-12-17. There has been interval placement of a left subclavian central line with tip in the direction of the SVC. A nasogastric tube is noted. There are bibasilar atelectatic changes with accompanying bilateral effusions. POS: OFF
[2017-12-17] MEDS ORDERED: Ketorolac Tromethamine 30 MG/ML VIAL IVP PRN (16:53)
--- NOTE | 2017-12-17 19:18 | OP ---
PREOPERATIVE DIAGNOSES: Severe pancreatitis, ileus, malnutrition, hypokalemia. POSTOPERATIVE DIAGNOSES: Severe pancreatitis, ileus, malnutrition, hypokalemia. PROCEDURE: Left subclavian vein triple-lumen catheter. SURGEON: Dr. Gregory Longoria. ANESTHESIA: 1% Xylocaine. PROCEDURE IN DETAIL: At the patient's bedside, left periclavicular area was sterilely prepped with C hloraPrep, draped in routine fashion. Local anesthetic with 1% Xylocaine infiltrated into skin and s ubcutaneous tissue about the operative site. Trocar catheter cannulated the subclavian vein. Infrac lavicular approach and using Seldinger technique, triple-lumen catheter was placed, removing the J wi re, placing a Biopatch, and securing the catheter with suture of 3-0 silk. Sterile dressing applied. Each port aspirated. Blood flushed with saline solution. Chest x-ray revealed good line placement .
[2017-12-17] MEDS ORDERED: PROVENTIL INHALER 6.7 G (200 INHALATIONS) INH PRN (19:27)
--- NOTE | 2017-12-17 20:03 | PRG ---
DATE OF SERVICE: 12/17/2017 SUBJECTIVE: Mr. Burger is doing well today. He is still having some abdominal distention. He is using his RADIOLOGY ASST pump at night to help him sleep. OBJECTIVE: VITAL SIGNS: Temperature 98 degrees, pulse 73, blood pressure 155/90, gastric drainage 440 mL in the last 24 hours. LUNGS: Clear to auscultation. CARDIAC: Regular rate and rhythm. ABDOMEN: Distended, tympanitic, firm. No bowel sounds. Chest x-ray obtained after central line elizabeth cement revealed it is in good position. Family Practice has given him potassium per his NG tube and clamped it. I immediately put his NG tub e back to suction. The patient has an ileus and should not receive meds especially potassium per gas tric tube. LABORATORY DATA: White count 10, hemoglobin 13, sodium 140, potassium 3.2, BUN 12, creatinine 0.7, g lucose 85. Bilirubin down to 1.2, normal. The patient had a CAT scan this morning p.o. and IV contr ast, pancreatic technique revealing cholelithiasis, gas in the extrahepatic bile duct consistent with recent sphincterotomy, stone extraction, peripancreatic inflammatory changes consistent with his kno wn diagnosis of pancreatitis. No peripancreatic fluid collections. Enlarged prostate, minimally dil ated small bowel consistent with ileus, fat containing left inguinal hernia. The patient is having copious urine output with little urine. He is mobilizing fluid from his fluid resuscitation for his pancreatitis, had TKO'd his IV fluids and given him a dose of Lasix. His potas sium is low. We will replace that parenteral through his central line. His nutrition is compromised with severe pancreatitis, n.p.o. for more than 7 days. We will initiate TPN and place a central gosia e and check magnesium and phosphorus. Patient is mobile, has been ambulating. He is on Lovenox. Tentatively was planning cholecystectomy tomorrow. We will hold off until his tympany resolves, his bowel function resumes. This could be la ter this week or next week. We would keep him n.p.o. except for ice chips and not giving any potassi um per NG tube.
[2017-12-17] MEDS: diphenhydrAMINE 50 MG/ML VIAL IVP SCH (20:53)
[2017-12-17] MEDS: Enoxaparin Sodium 40 MG/0.4 ML SYRINGE SC SCH (20:53)
[2017-12-17] MEDS: Melatonin 3 MG TAB PO SCH (20:55)
[2017-12-17] MEDS ORDERED: Pregabalin 50 MG CAP PO SCH (21:00)
--- NOTE | 2017-12-17 21:22 | PRG ---
DATE OF SERVICE: 12/17/2017 REASON FOR CONSULTATION: Gallstone pancreatitis. SUBJECTIVE: The patient states that his abdominal pain has improved when compared to yesterday, but he still has significantly increased abdominal distention that he feels that the NG tube is not jin ting with. He continues to use a SUPERVISOR CONCRETE STONE FINISHING pump for abdominal pain relief, but has been attempting to use this much less given the possible ileus. He has been able to get up and walk around, but this has no t provided any long lasting relief. Currently, denies any nausea, vomiting, fevers, chills or overt GI bleeding. OBJECTIVE: VITAL SIGNS: Temperature 98.2, pulse 87, blood pressure 174/83, respiratory rate 20, satting 95% on 3 liters nasal cannula. GENERAL: The patient is lying in bed in no acute distress. Alert and oriented x4. CARDIOVASCULAR: Regular rate and rhythm with no discernible murmurs, gallops or rubs. RESPIRATORY: Clear to auscultation bilaterally. ABDOMEN: Normoactive bowel sounds. Moderate to severe abdominal distention. Mild tenderness to pal pation in all abdominal quadrants. EXTREMITIES: No cyanosis, clubbing or edema. LABORATORY DATA: CBC with a white blood cell count of 10.8, hemoglobin 13.1, hematocrit 38.2, platel ets 184. Chemistry with sodium of 140, potassium 3.2, chloride 107, CO2 is 23, BUN 12, creatinine 0. 7, glucose 85. AST 18, ALT 62, alkaline phosphatase 50, total bilirubin 1.2. IMAGING DATA: CT abdomen and pelvis obtained on 12/17/2017 showed cholelithiasis with multiple gallb ladder calculi seen with larger calculus in the gallbladder lumen. There are peripancreatic inflamma tory changes suggesting pancreatitis, but no peripancreatic fluid collection is identified. There ar e also a few mildly dilated loops of small bowel with more normal caliber distal small bowel loops wi thout obvious transition point suggesting ileus secondary to pancreatitis. ASSESSMENT: The patient is a 52-year-old gentleman with a past medical history of hypertension prese nting with gallstone pancreatitis. Gallstone pancreatitis. The patient underwent an ERCP on 12/14/2017 with successful extraction of a 7-[address] one. Initially after the ERCP, he had improvement of his abdominal pain and abdominal distention, bu t worsened approximately 24 hours after the procedure. However, with the placement of the NG tube, h is abdominal pain has decreased, but he continues to have significant abdominal distention. CT abdom en and pelvis obtained today has nonspecific findings within the small bowel consistent with a small bowel ileus which could be secondary to his gallstone pancreatitis and inflammatory process associate d with this condition. Biopsies obtained during the ERCP of the small bowel were fairly nonspecific only showing increase inflammation within the small bowel without any clear etiology. At this point, it is unclear as to how this may be contributing to his current clinical condition. RECOMMENDATIONS: 1. Agree with decreasing IV fluid after adequate fluid resuscitation and possibility of fluid overlo ad. 2. Agree with institution of tube feeds through the NG tube to maintain gut integrity. 3. We will minimize narcotic administration given its contribution to the possible ileus. 4. Defer to General Surgery service for timing of cholecystectomy. We will sign off at this time. Please call with any additional questions.
[2017-12-18] MEDS: Acetaminophen 1,000 MG in Premix Bag 1 BAG IVPB SCH ×4 (00:29→18:28)
[2017-12-18 05:42] LABS: #Eosinphils 0.2 thou/uL (0.0-0.7); #Lymphocytes 1.3 thou/uL (1.20-3.40); #Monocytes 1.1 thou/uL (0.11-0.59); #Neutrophils 8.5 thou/uL (1.40-6.50); %Basophils 0.4 % (0.0-1.0); %Eosinophils 1.8 % (0.0-10.0); %Lymphocytes 11.9 % (21.0-51.0); %Monocytes 9.6 % (0.0-10.0); %Neutrophils 76.3 % (42.0-75.0); Hemoglobin 12.4 g/dL (14.0-18.0); Mean Corpuscular HGB CONC 33.7 g/dL (32.0-36.0); Mean Corpuscular Hemoglobin 30.4 pg (27.0-31.0); Mean Corpuscular Volume 90.2 fl (80.0-94.0); Mean Platelet Volume 7.8 fL (7.4-10.4); Platelet Count 260 thou/uL (130-400); RBC Distribution Width 13.3 % (11.5-14.5); Red Blood Cell (RBC) Count 4.07 mill/uL (4.70-6.10); White Blood Cell (WBC) Count 11.1 thou/uL (4.8-10.8)
[2017-12-18] MEDS ORDERED: hydrALAZINE 20 MG/ML VIAL SLOW IVP PRN (06:06)
[2017-12-18 06:13] LABS: ALT (SGPT) 45 U/L (8-55); AST (SGOT) 20 U/L (5-34); Albumin 3.5 g/dL (3.5-5.0); Alkaline Phosphatase 47 U/L (40-150); Anion Gap 13 mmol/L (10-20); BUN (Urea Nitrogen) 8 mg/dL (8.4-25.7); Bilirubin, Total 1.6 mg/dL (0.2-1.2); Calc. Creatinine Clearance 178 mL/min (70-130); Calcium 8.3 mg/dL (7.8-10.44); Carbon Dioxide 26 mmol/L (22-29); Chloride 103 mmol/L (98-107); Estimated GFR-MDRD Greater than 90; Globulin 2.6 g/dL (2.4-3.5); Glucose 97 mg/dL (70-105); Magnesium 1.9 mg/dL (1.6-2.6); Potassium 3.1 mmol/L (3.5-5.1); Protein, Total 6.1 g/dL (6.0-8.3); Sodium 139 mmol/L (136-145)
[2017-12-18 06:15] LABS: Phosphorus 1.9 mg/dL (2.3-4.7)
[2017-12-18] MEDS ORDERED: Potassium Chloride 40 MEQ in Sodium Chloride 0.9% 250 ML 250 ML IVPB SCH ×2 (06:30→20:00)
[2017-12-18] MEDS ORDERED: Potassium Phosphate 9 MMOL in Sodium Chloride 0.9% 100 ML IVPB SCH (06:30)
[2017-12-18] MEDS ORDERED: Potassium Chloride 40 MEQ in Premix Bag 1 BAG IVPB SCH (07:45)
[2017-12-18] MEDS ORDERED: Furosemide 40 MG/4 ML VIAL SLOW IVP SCH (08:00)
[2017-12-18] MEDS ORDERED: Oxybutynin ER 5 MG TAB PO SCH (09:00)
[2017-12-18] MEDS: Famotidine/PF 20 mg/2ml Vial SLOW IVP SCH ×2 (09:17→20:45)
[2017-12-18] MEDS: Albumin 25% 25 GM/100 ML BOT IVPB SCH ×3 (09:22→20:44)
--- NOTE | 2017-12-18 09:24 | PDOC.FM ---
- Subjective Subjective: Patient reports that last night he got a stabbing pain in the middle of his abdomen. He used the ENVIRONMENTAL COMPLIANCE TECHNICIAN and that helped the pain. He also used the ENVIRONMENTAL COMPLIANCE TECHNICIAN for sleep last night as the benadryl did not help. The patient has not been up ambulating very much throughout the day. He reports that the abdominal pain is gone now. He is still not passing gas or had a BM. - Objective MAR Reviewed: Yes Vital Signs & Weight: Vital Signs (12 hours) Temp Pulse Resp BP Pulse Ox 12/17/17 23:57 98.2 F 83 22 H 155/81 H 93 L Weight Admit Weight 104.3 kg Weight 104.3 kg I&O: 12/17/17 12/18/17 12/19/17 06:59 06:59 06:59 Intake Total 1320 293 Output Total 440 1540 Balance 880 -1247 Result Diagrams: 12/18/17 05:20 12/18/17 05:20 <Steph Reynoso - Last Filed: 12/18/17 09:23> - Objective Vital Signs & Weight: Vital Signs (12 hours) Temp Pulse Resp BP Pulse Ox 12/18/17 08:00 97.6 F 78 20 157/95 H 95 Weight Admit Weight 104.3 kg Weight 104.3 kg I&O: 12/17/17 12/18/17 12/19/17 06:59 06:59 06:59 Intake Total 1320 293 140 Output Total 440 1540 200 Balance 880 -1247 -60 Result Diagrams: 12/18/17 05:20 12/18/17 05:20 <Eneida Parnell - Last Filed: 12/18/17 14:31> Phys Exam - Physical Examination Constitutional: NAD HEENT: moist MMs Respiratory: no wheezing, no rales, no rhonchi, clear to auscultation bilateral Cardiovascular: RRR, no significant murmur, no rub Gastrointestinal: soft, non-tender distended, hypoactive bowel sounds Musculoskeletal: no edema, pulses present Neurological: non-focal, moves all 4 limbs Psychiatric: normal affect, A&O x 3 Skin: cap refill <2 seconds <Steph Reynoso - Last Filed: 12/18/17 09:23> Dx/Plan (1) Acute pancreatitis Code(s): K85.90 - ACUTE PANCREATITIS WITHOUT NECROSIS OR INFECTION, UNSP Status: Acute QualifierTitle: Pancreatitis type: biliary Acute pancreatitis complication: unspecified Qualified Code(s): K85.10 - Biliary acute pancreatitis without necrosis or infection (2) Ileus Code(s): K56.7 - ILEUS, UNSPECIFIED Status: Acute (3) HTN (hypertension) Code(s): I10 - ESSENTIAL (PRIMARY) HYPERTENSION Status: Chronic QualifierTitle: Hypertension type: essential hypertension Qualified Code( s): I10 - Essential (primary) hypertension (4) Hypokalemia Code(s): E87.6 - HYPOKALEMIA Status: Acute (5) GERD (gastroesophageal reflux disease) Code(s): K21.9 - GASTRO-ESOPHAGEAL REFLUX DISEASE WITHOUT ESOPHAGITIS Status: Chronic QualifierTitle: Esophagitis presence: esophagitis presence not specified Qualified Code(s): K21.9 - Gastro-esophageal reflux disease without esophagitis - Plan Plan: 1. Gallstone pancreatitis - s/p ERCP. Duodenal ulcers were biopsied. Sphincter dilation performed. - Continue Levaquin day 5 - Will monitor vitals and CBC for signs of infection - D/C fluids and gave pt lasix due to concern for some fluid overload. - Monitor I/O - Ransons at 48 hours - 2 - PO opiates have been DC'd dt ileus. ENVIRONMENTAL COMPLIANCE TECHNICIAN in place. - NG in place, NPO, will start on TPN 2. Cholecystitis - pt to have for lap craig when ileus improves - General Surgery on board, appreciate recs 3. Ileus Likely 2/2 ERCP and opioid use. NG in place to suction, but patient does not feel like this has helped with his distention. - NPO with TPN - GI on board, appreciate recs - Encouraged pt to only use ENVIRONMENTAL COMPLIANCE TECHNICIAN when necessary. - Will give patient sleep medication as this is when he uses ENVIRONMENTAL COMPLIANCE TECHNICIAN the most. - Encourage ambulation 4. HTN - elevated dt pain - monitor vitals as above - PRN hydralazine 5. Hypokalemia Potassium 3.1 this AM - Will replete with IV potassium <Steph Reynoso - Last Filed: 12/18/17 09:23> Attending Addendum - Attending Addendum Date/Time: 12/18/17 2148 I personally evaluated the patient and discussed the management with Dr. Reynoso on 12/18/17. I agree with the History, Examination, Assessment and Plan documented above with any addition or exceptions noted below. Continue IV electrolyte replacement. Patient started on TPN by Dr. Longoria and central line placed. Will transition to enteral feeding when possible. Continues to have ileus. Patient continues to use ENVIRONMENTAL COMPLIANCE TECHNICIAN despite repeated counseling on opiates contributing to his ileus and has not been walking except to use the restroom. No bowel sounds today, abdomen diffusely mildly TTP, no guarding or rebound. NG in place on LIWS. PT consulted to ambulate patient, may consider walking program TID if OK with PT. Will discuss with anesthesia weaning ENVIRONMENTAL COMPLIANCE TECHNICIAN to PO pain medication, as patient's pain is relatively well controlled except at night. <Eneida Parnell - Last Filed: 12/18/17 14:31>
[2017-12-18] MEDS ORDERED: diphenhydrAMINE 50 MG/ML VIAL IVP PRN (12:21)
[2017-12-18] MEDS: TRACE ELEMENT IV SCH ×7 (15:25)
[2017-12-18] MEDS: POTASSIUM ACETATE IV SCH ×7 (15:25)
[2017-12-18] MEDS: CALCIUM CHLORIDE IV SCH ×7 (15:25)
[2017-12-18] MEDS: [UNRECOGNIZED DRUG - OTHER] IV SCH ×7 (15:25)
[2017-12-18] MEDS ORDERED: Chloraseptic Spray 180 ml Bottle PO PRN (18:32)
[2017-12-18 19:25] LABS: Anion Gap 12 mmol/L (10-20); BUN (Urea Nitrogen) 9 mg/dL (8.4-25.7); Calc. Creatinine Clearance 160 mL/min (70-130); Calcium 8.9 mg/dL (7.8-10.44); Carbon Dioxide 29 mmol/L (22-29); Chloride 102 mmol/L (98-107); Estimated GFR-MDRD Greater than 90; Glucose 166 mg/dL (70-105); Sodium 140 mmol/L (136-145)
[2017-12-18] MEDS: Enoxaparin Sodium 40 MG/0.4 ML SYRINGE SC SCH (20:45)
--- NOTE | 2017-12-18 20:58 | PRG ---
DATE OF SERVICE: 12/18/2017 SUBJECTIVE: Mr. Burger is doing well today. He is feeling a little better. His abdomen feels a l ittle softer and it is not hurting so bad. His ABSORPTION PLANT OPERATOR HELPER has been discontinued as he was only using it to help him sleep. OBJECTIVE: VITAL SIGNS: Temperature 98.3 degrees, heart rate 89 and blood pressure 164/93. Gastric output for the last 24 hours 600 mL. Urine output 940. He has been on Lasix yesterday and another dose today. LUNGS: Clear to auscultation. CARDIAC: Regular rate and rhythm without murmur or gallop. ABDOMEN: Soft, occasional bowel sounds. EXTREMITIES: No flatus or stool, distended, protuberant. LABORATORY DATA: White count 11 and hemoglobin 12. Sodium 139, potassium 3.1 and creatinine 0.7. A ccu-Cheks are 89-97, phosphorus is low at 1.9, magnesium 1.9 and total bilirubin slightly elevated at 1.6. ASSESSMENT AND PLAN: Biliary pancreatitis with severe pancreatitis. Initiate TPN today. TPN orders were written yesterday, but error delayed initiation for 24 hours. Minimize IV fluids. Continue ge ntle diuresis. Await GI function. Laparoscopic cholecystectomy later this week or next week pending GI activity and recovery.
[2017-12-18] MEDS: diphenhydrAMINE 50 MG/ML VIAL IVP SCH (22:20)
[2017-12-19] MEDS: Melatonin 3 MG TAB PO SCH ×2 (00:01→20:59)
[2017-12-19] MEDS: Acetaminophen 1,000 MG in Premix Bag 1 BAG IVPB SCH ×3 (00:02→12:25)
[2017-12-19] MEDS: diphenhydrAMINE 50 MG/ML VIAL IVP PRN (02:28)
[2017-12-19 04:58] LABS: #Eosinphils 0.2 thou/uL (0.0-0.7); #Lymphocytes 1.5 thou/uL (1.20-3.40); #Neutrophils 8.7 thou/uL (1.40-6.50); %Basophils 0.4 % (0.0-1.0); %Eosinophils 1.8 % (0.0-10.0); %Monocytes 8.6 % (0.0-10.0); %Neutrophils 76.2 % (42.0-75.0); Hemoglobin 12.8 g/dL (14.0-18.0); Mean Corpuscular HGB CONC 33.5 g/dL (32.0-36.0); Mean Corpuscular Hemoglobin 30.2 pg (27.0-31.0); Mean Corpuscular Volume 90.1 fl (80.0-94.0); Mean Platelet Volume 7.7 fL (7.4-10.4); Platelet Count 273 thou/uL (130-400); RBC Distribution Width 13.5 % (11.5-14.5); Red Blood Cell (RBC) Count 4.24 mill/uL (4.70-6.10); White Blood Cell (WBC) Count 11.5 thou/uL (4.8-10.8)
[2017-12-19 05:18] LABS: Anion Gap 10 mmol/L (10-20); BUN (Urea Nitrogen) 9 mg/dL (8.4-25.7); Calc. Creatinine Clearance 166 mL/min (70-130); Carbon Dioxide 27 mmol/L (22-29); Chloride 104 mmol/L (98-107); Estimated GFR-MDRD Greater than 90; Glucose 140 mg/dL (70-105); Potassium 3.1 mmol/L (3.5-5.1); Sodium 138 mmol/L (136-145)
[2017-12-19] MEDS ORDERED: Potassium Chloride 40 MEQ in Premix Bag 1 BAG IVPB SCH ×2 (07:45→13:00)
[2017-12-19] MEDS: Potassium Chloride 40 MEQ, Admixture Fee 1 EACH in Sodium Chloride 0.9% 250 ML 250 ML IVPB SCH ×2 (08:09→12:51)
[2017-12-19] MEDS: Albumin 25% 25 GM/100 ML BOT IVPB SCH ×2 (08:11→15:18)
[2017-12-19] MEDS: Famotidine/PF 20 mg/2ml Vial SLOW IVP SCH (08:11)
--- NOTE | 2017-12-19 08:28 | PDOC.FM ---
- Subjective Subjective: Patient passed a small amount of gas last night. He has not passed any gas since then. He denies any BM at this time. He reports that he was restless last night and couldn't sleep as well without the SERVICE CLEANER. He has some SOB associated with his abdominal distension and felt a little more SOB after getting all the fluid from the TPN. - Objective MAR Reviewed: Yes Vital Signs & Weight: Vital Signs (12 hours) Temp Pulse Resp BP Pulse Ox 12/19/17 07:39 98.7 F 76 24 H 159/98 H 96 12/19/17 04:00 97.6 F 77 20 149/83 H 94 L 12/19/17 00:00 98.2 F 75 20 154/86 H 93 L Weight Admit Weight 104.3 kg Weight 104.3 kg I&O: 12/18/17 12/19/17 12/20/17 06:59 06:59 06:59 Intake Total 293 2470 Output Total 1540 2285 Balance -1247 185 Result Diagrams: 12/19/17 04:50 12/19/17 04:50 <Steph Reynoso - Last Filed: 12/19/17 08:26> - Objective Vital Signs & Weight: Vital Signs (12 hours) Temp Pulse Resp BP Pulse Ox 12/19/17 11:12 98.2 F 78 22 H 135/85 95 12/19/17 08:00 98.2 F 78 22 H 12/19/17 07:39 98.7 F 76 24 H 159/98 H 96 12/19/17 04:00 97.6 F 77 20 149/83 H 94 L Weight Admit Weight 104.3 kg Weight 104.3 kg I&O: 12/18/17 12/19/17 12/20/17 06:59 06:59 06:59 Intake Total 293 2470 Output Total 1540 2285 300 Balance -1247 185 -300 Result Diagrams: 12/19/17 04:50 12/19/17 04:50 <Eneida Parnell - Last Filed: 12/19/17 12:30> Phys Exam - Physical Examination Constitutional: NAD HEENT: moist MMs Respiratory: no wheezing, no rales, no rhonchi, clear to auscultation bilateral Cardiovascular: RRR, no significant murmur, no rub Gastrointestinal: non-tender firm, distended, normoactive bowel sounds Musculoskeletal: no edema, pulses present Neurological: non-focal, moves all 4 limbs Psychiatric: normal affect, A&O x 3 <Steph Reynoso - Last Filed: 12/19/17 08:26> Dx/Plan (1) Acute pancreatitis Code(s): K85.90 - ACUTE PANCREATITIS WITHOUT NECROSIS OR INFECTION, UNSP Status: Acute QualifierTitle: Pancreatitis type: biliary Acute pancreatitis complication: unspecified Qualified Code(s): K85.10 - Biliary acute pancreatitis without necrosis or infection (2) Ileus Code(s): K56.7 - ILEUS, UNSPECIFIED Status: Acute (3) HTN (hypertension) Code(s): I10 - ESSENTIAL (PRIMARY) HYPERTENSION Status: Chronic QualifierTitle: Hypertension type: essential hypertension Qualified Code( s): I10 - Essential (primary) hypertension (4) Hypokalemia Code(s): E87.6 - HYPOKALEMIA Status: Acute (5) GERD (gastroesophageal reflux disease) Code(s): K21.9 - GASTRO-ESOPHAGEAL REFLUX DISEASE WITHOUT ESOPHAGITIS Status: Chronic QualifierTitle: Esophagitis presence: esophagitis presence not specified Qualified Code(s): K21.9 - Gastro-esophageal reflux disease without esophagitis - Plan Plan: 1. Gallstone pancreatitis - s/p ERCP. Duodenal ulcers were biopsied. Sphincter dilation performed. - Continue Levaquin day 6 - Will monitor vitals and CBC for signs of infection - D/C fluids and gave pt lasix due to concern for some fluid overload. - Monitor I/O - Ransons at 48 hours - 2 - PO opiates have been DC'd dt ileus. SERVICE CLEANER was d/c'd. Pain control with IV tylenol, toradol, and benadryl. - NG in place, NPO, patient has been started on TPN. Will give patient another dose of lasix for concern for fluid overload. 2. Cholecystitis - pt to have for lap craig when ileus improves - General Surgery on board, appreciate recs 3. Ileus Likely 2/2 ERCP and opioid use. NG in place to suction, but patient does not feel like this has helped with his distention. - NPO with TPN - GI on board, appreciate recs - SERVICE CLEANER d/c'd. Patient no longer on any opioids for pain - Encourage ambulation, Walking program 4. HTN - elevated dt pain - monitor vitals as above - PRN hydralazine 5. Hypokalemia Potassium 3.1 this AM - Will replete with IV potassium <Steph Reynoso - Last Filed: 12/19/17 08:26> Attending Addendum - Attending Addendum Date/Time: 12/19/17 1220 I personally evaluated the patient and discussed the management with Dr. Reynoso on 12/19/17. I agree with the History, Examination, Assessment and Plan documented above with any addition or exceptions noted below. Patient now passing gas and has improved bowel sounds. Continue aggressive walking program and avoiding opiates now that he is off SERVICE CLEANER. Once he resumes bowel function will hopefully go for lap craig and be able to resume a PO diet. <Eneida Parnell - Last Filed: 12/19/17 12:30>
[2017-12-19] MEDS ORDERED: Furosemide 40 MG/4 ML VIAL SLOW IVP SCH (09:00)
--- NOTE | 2017-12-19 09:05 | RAD ---
ABDOMEN ONE VIEW: History: NG tube placement. Comparison: None. FINDINGS: Enteric tube tip appears to be at the gastric antrum. There is calcified cholelithiasis of the right upper quadrant of the abdomen. IMPRESSION: Enteric tube tip at the gastric antrum in good position. POS: ADELIA
[2017-12-19] MEDS: CALCIUM CHLORIDE IV SCH ×7 (15:18)
[2017-12-19] MEDS: POTASSIUM ACETATE IV SCH ×7 (15:18)
[2017-12-19] MEDS: TRACE ELEMENT IV SCH ×7 (15:18)
[2017-12-19] MEDS: [UNRECOGNIZED DRUG - OTHER] IV SCH ×7 (15:18)
[2017-12-19] MEDS ORDERED: Acetaminophen 1,000 MG in Premix Bag 1 BAG IVPB SCH (18:00)
[2017-12-19] MEDS ORDERED: Ketorolac Tromethamine 30 MG/ML VIAL IVP SCH (18:00)
--- NOTE | 2017-12-19 18:22 | PRG ---
DATE OF SERVICE: 12/19/2017 SUBJECTIVE: Mr. Rojelio Burger is doing well today. He is happy to announce that he had a bowel mov ement and pleased to show it to me. His abdomen is baseline protuberance and he is feeling much bett er. He states it may be slightly distended, but he feels much better after regaining bowel function. OBJECTIVE: VITAL SIGNS: Temperature 98.1 degrees, pulse 79 and blood pressure 154/97. NG tube output overnight is 425 mL. Apparently, his NG tube partially dislodged yesterday and was repositioned and KUB confi rmed. I have removed his NG tube today. LUNGS: Clear to auscultation. CARDIAC: Regular rate and rhythm without murmur or gallop. ABDOMEN: Soft and nontender. EXTREMITIES: Unremarkable. LABORATORY DATA: White count 11 and hemoglobin 12. Basic metabolic profile normal. Potassium 3.1. He is on TPN. He is given another dose of Lasix today and given 2 more runs of potassium. Repeat p otassium this evening is pending. ASSESSMENT AND PLAN: Biliary pancreatitis, status post endoscopic retrograde cholangiopancreatograph y, sphincterotomy and stone extraction. We will plan laparoscopic cholecystectomy tomorrow. He unde rstands the risks of infection, bleeding, reoperation and consents. Questions answered. Postoperati vely, tomorrow, he could be discharged home. We will ask pharmacy not to mix anymore TPN and discont inue that.
[2017-12-19 18:44] LABS: Anion Gap 12 mmol/L (10-20); BUN (Urea Nitrogen) 14 mg/dL (8.4-25.7); Calc. Creatinine Clearance 147 mL/min (70-130); Calcium 9.1 mg/dL (7.8-10.44); Carbon Dioxide 25 mmol/L (22-29); Chloride 106 mmol/L (98-107); Estimated GFR-MDRD Greater than 90; Glucose 128 mg/dL (70-105); Potassium 4.4 mmol/L (3.5-5.1); Sodium 139 mmol/L (136-145)
[2017-12-19] MEDS: Enoxaparin Sodium 40 MG/0.4 ML SYRINGE SC SCH (21:00)
[2017-12-19] MEDS: diphenhydrAMINE 50 MG/ML VIAL IVP SCH (22:28)
[2017-12-20 06:05] LABS: Anion Gap 12 mmol/L (10-20); BUN (Urea Nitrogen) 20 mg/dL (8.4-25.7); Calc. Creatinine Clearance 152 mL/min (70-130); Carbon Dioxide 25 mmol/L (22-29); Chloride 106 mmol/L (98-107); Estimated GFR-MDRD Greater than 90; Glucose 109 mg/dL (70-105); Potassium 3.6 mmol/L (3.5-5.1); Sodium 139 mmol/L (136-145)
[2017-12-20] MEDS ORDERED: Lactated Ringer's 1,000 ML IV SCH (08:00)
--- NOTE | 2017-12-20 08:47 | PDOC.FM ---
- Subjective Subjective: Patient had a BM yesterday and feels a lot better today. He was able to breathe more easily and denies any SOB. He reports that his abdomen feels less distended. - Objective MAR Reviewed: Yes Vital Signs & Weight: Vital Signs (12 hours) Temp Pulse Resp BP Pulse Ox 12/20/17 07:55 98.8 F 88 20 12/20/17 04:00 98.8 F 88 20 143/84 H 94 L Weight Admit Weight 104.3 kg Weight 104.3 kg I&O: 12/19/17 12/20/17 12/21/17 06:59 06:59 06:59 Intake Total 2470 700 Output Total 2285 300 Balance 185 400 Result Diagrams: 12/19/17 04:50 12/20/17 05:08 <Steph Reynoso - Last Filed: 12/20/17 08:44> - Objective Vital Signs & Weight: Vital Signs (12 hours) Temp Pulse Resp BP BP Pulse Ox 12/21/17 07:49 97.8 F 80 18 138/70 92 L 12/21/17 06:19 98.0 F 80 18 151/98 H 94 L 12/21/17 01:12 98.7 F 72 20 139/87 92 L 12/20/17 21:23 98.3 F 74 18 131/85 94 L Weight Admit Weight 104.3 kg Weight 104.3 kg I&O: 12/20/17 12/21/17 12/22/17 06:59 06:59 06:59 Intake Total 700 Output Total 300 Balance 400 Result Diagrams: 12/21/17 05:20 12/21/17 05:20 <Eneida Parnell - Last Filed: 12/21/17 09:16> Phys Exam - Physical Examination Constitutional: NAD HEENT: moist MMs Respiratory: no wheezing, no rales, no rhonchi, clear to auscultation bilateral Cardiovascular: RRR, no significant murmur, no rub Gastrointestinal: soft, positive bowel sounds mildly distended, mildly tender to palpation in COLT region Musculoskeletal: no edema, pulses present Neurological: non-focal, moves all 4 limbs Psychiatric: normal affect, A&O x 3 Skin: normal turgor, cap refill <2 seconds <Steph Reynoso - Last Filed: 12/20/17 08:44> Dx/Plan (1) Acute pancreatitis Code(s): K85.90 - ACUTE PANCREATITIS WITHOUT NECROSIS OR INFECTION, UNSP Status: Acute QualifierTitle: Pancreatitis type: biliary Acute pancreatitis complication: unspecified Qualified Code(s): K85.10 - Biliary acute pancreatitis without necrosis or infection (2) Ileus Code(s): K56.7 - ILEUS, UNSPECIFIED Status: Acute (3) HTN (hypertension) Code(s): I10 - ESSENTIAL (PRIMARY) HYPERTENSION Status: Chronic QualifierTitle: Hypertension type: essential hypertension Qualified Code( s): I10 - Essential (primary) hypertension (4) Hypokalemia Code(s): E87.6 - HYPOKALEMIA Status: Acute (5) GERD (gastroesophageal reflux disease) Code(s): K21.9 - GASTRO-ESOPHAGEAL REFLUX DISEASE WITHOUT ESOPHAGITIS Status: Chronic QualifierTitle: Esophagitis presence: esophagitis presence not specified Qualified Code(s): K21.9 - Gastro-esophageal reflux disease without esophagitis - Plan Plan: 1. Gallstone pancreatitis - s/p ERCP. Duodenal ulcers were biopsied. Sphincter dilation performed. - Continue Levaquin day 7 - Will monitor vitals and CBC for signs of infection - D/C fluids and gave pt lasix due to concern for some fluid overload. - Monitor I/O - Ransons at 48 hours - 2 - PO opiates have been DC'd dt ileus. TOOLS AND PARTS ATTENDANT was d/c'd. Pain control with IV tylenol, toradol, and benadryl. - NG removed - Plan to have lap craig today 2. Ileus Likely 2/2 ERCP and opioid use. Resolving as pt had a BM yesterday and is having normoactive bowel sounds. NG removed - GI on board, appreciate recs - TOOLS AND PARTS ATTENDANT d/c'd. Patient no longer on any opioids for pain - Encourage ambulation, Walking program 3. HTN - elevated dt pain - monitor vitals as above - PRN hydralazine 4. Hypokalemia Potassium normal this AM - Continue to monitor <Steph Reynoso - Last Filed: 12/20/17 08:44> Attending Addendum - Attending Addendum Date/Time: 12/21/17 8282 I personally evaluated the patient and discussed the management with Dr. Reynoso on 12/20/17. I agree with the History, Examination, Assessment and Plan documented above with any addition or exceptions noted below. Patient's ileus resolved, is having bowel movements. Abd pain improved, still mildly distended. No TPP, good bowel sounds. Going for lap craig today with Dr. Longoria. Dispo after that depending on how surgery goes and if he tolerates PO and maintains bowel function. <Eenida Parnell - Last Filed: 12/21/17 09:16>
[2017-12-20] MEDS ORDERED: Propofol 200 MG/20 ML VIAL ONE (08:51)
[2017-12-20] MEDS ORDERED: Lidocaine 1% PF 5 ML VIAL ONE (08:51)
[2017-12-20] MEDS ORDERED: Glycopyrrolate 0.2 MG/ML 5 ML SYRINGE ONE (08:51)
[2017-12-20] MEDS ORDERED: Ketorolac Tromethamine 30 MG/ML VIAL ONE (08:51)
[2017-12-20] MEDS ORDERED: Dexamethasone 20 MG/5 ML VIAL ONE (08:51)
[2017-12-20] MEDS ORDERED: Ondansetron HCl/PF 4 MG/2 ML Vial ONE ×3 (08:51→15:43)
[2017-12-20] MEDS ORDERED: Iothalamate Meglumine 60% 50 ML VIAL FS ONE (15:29)
[2017-12-20] MEDS ORDERED: Bupivacaine HCl 0.5%/Epinephrine 1:200,000/PF 30 ml Vial ONE (15:29)
[2017-12-20] MEDS ORDERED: Fentanyl 250 MCG/5 ML VIAL ONE (15:43)
[2017-12-20] MEDS ORDERED: Famotidine/PF 20 mg/2ml Vial ONE (15:43)
[2017-12-20] MEDS ORDERED: Promethazine HCl 25 MG/ML VIAL SLOW IVP PRN (17:03)
[2017-12-20] MEDS ORDERED: Meperidine HCl/PF 25 MG/ML VIAL SLOW IVP PRN (17:03)
[2017-12-20] MEDS ORDERED: Ondansetron HCl/PF 4 MG/2 ML Vial IVP PRN ×2 (17:03→17:11)
[2017-12-20] MEDS ORDERED: Promethazine HCl 25 MG/ML VIAL IM PRN ×2 (17:03→17:11)
[2017-12-20] MEDS ORDERED: Ondansetron ORAL SOLN. 4 MG/5 ML UDCUP PO PRN ×2 (17:06)
[2017-12-20] MEDS ORDERED: Ondansetron ODT 8 MG TAB PO PRN (17:06)
[2017-12-20] MEDS ORDERED: Ondansetron ODT 8 MG TAB SL PRN (17:06)
[2017-12-20] MEDS ORDERED: diphenhydrAMINE 50 MG/ML VIAL IM PRN (17:11)
[2017-12-20] MEDS ORDERED: Zolpidem Tartrate 5 MG TAB PO PRN (17:11)
[2017-12-20] MEDS ORDERED: Fentanyl 5000 MCG/250 ML CADD IVPB PRN (17:11)
[2017-12-20] MEDS ORDERED: Naloxone HCl 0.4 mg/ml Vial IV PRN (17:11)
[2017-12-20] MEDS ORDERED: diphenhydrAMINE 50 MG/ML VIAL IVP PRN (17:11)
[2017-12-20] MEDS ORDERED: diphenhydrAMINE 25 MG CAP PO PRN (17:11)
[2017-12-20] MEDS ORDERED: Communication Order-Pharmacy FS SCH (17:15)
[2017-12-20] MEDS ORDERED: fentaNYL Citrate/PF 2,000 MCG in Sodium Chloride 0.9% 60 ML IV PRN (17:30)
[2017-12-20] MEDS ORDERED: traMADol HCl 50 MG TAB PO PRN ×2 (18:02)
[2017-12-20] MEDS ORDERED: Ibuprofen 600 MG TAB PO PRN (18:02)
[2017-12-20] MEDS ORDERED: Acetaminophen 500 MG TAB PO PRN (18:02)
[2017-12-20] MEDS: Melatonin 3 MG TAB PO SCH (20:24)
[2017-12-20] MEDS: Enoxaparin Sodium 40 MG/0.4 ML SYRINGE SC SCH (20:24)
--- NOTE | 2017-12-20 22:18 | OP ---
DATE OF PROCEDURE: 12/20/2017 PREOPERATIVE DIAGNOSES: Biliary pancreatitis, cholecystitis, cholelithiasis. This hospitalization, status post endoscopic retrograde cholangiopancreatography, sphincterotomy, extraction of stones, dec ompression, choledocholithiasis/cholangitis, resolved pancreatitis. POSTOPERATIVE DIAGNOSES: Biliary pancreatitis, cholecystitis, cholelithiasis. This hospitalization, status post endoscopic retrograde cholangiopancreatography, sphincterotomy, extraction of stones, de compression, choledocholithiasis/cholangitis, resolved pancreatitis. PROCEDURE PERFORMED: Laparoscopic video cholecystectomy. SURGEON: Dr. Longoria. ANESTHESIA: General. Local 0.5% Marcaine with epinephrine 30 mL. DESCRIPTION OF PROCEDURE: The patient taken to the operating room where under general anesthesia, ab barrie was clipped of hair, prepared with ChloraPrep, draped in routine fashion. Local anesthetic inf iltrated into the skin and subcutaneous tissue about each port site. Infraumbilical incision made an d pneumoperitoneum to 15 mmHg obtained with the Veress needle, replacing it with a 5 port and video l aparoscope inserted. Right subxiphoid incision made and 11 port placed. Right subcostal incision ma de mid clavicular anterior axillary lines and 5 ports placed. Liver appeared to be normal. There we re some minimal saponification changes over the anterior abdominal wall, but otherwise there was no f ree fluid and abdominal cavity was grossly normal. Fundus of gallbladder grasped and reflected cepha lad. Infundibulum grasped and reflected laterally. Cystic artery and duct dissected free. Critical view obtained. Cystic artery and duct doubly clipped proximally, divided, and gallbladder dissected free from the liver bed obtaining good hemostasis prior to division of final peritoneal attachments. Gallbladder and contents removed. There was some bleeding in the liver bed for which FloSeal was a pplied after good hemostasis obtained with the cautery. Milagros applied. Good hemostasis noted. Irr igant and pneumoperitoneum evacuated. All instruments removed and all skin incisions approximated wi th interrupted subdermal 4-0 Monocryl and DermaGlue applied.
[2017-12-21 05:36] LABS: #Basophils 0.1 thou/uL (0.0-0.2); #Eosinphils 0.1 thou/uL (0.0-0.7); #Lymphocytes 0.8 thou/uL (1.20-3.40); #Monocytes 0.7 thou/uL (0.11-0.59); #Neutrophils 16.5 thou/uL (1.40-6.50); %Basophils 0.8 % (0.0-1.0); %Eosinophils 0.4 % (0.0-10.0); %Lymphocytes 4.5 % (21.0-51.0); %Neutrophils 90.4 % (42.0-75.0); Mean Corpuscular HGB CONC 32.9 g/dL (32.0-36.0); Mean Corpuscular Hemoglobin 29.5 pg (27.0-31.0); Mean Corpuscular Volume 89.9 fl (80.0-94.0); Mean Platelet Volume 7.6 fL (7.4-10.4); Platelet Count 311 thou/uL (130-400); RBC Distribution Width 13.9 % (11.5-14.5); Red Blood Cell (RBC) Count 4.41 mill/uL (4.70-6.10); White Blood Cell (WBC) Count 18.2 thou/uL (4.8-10.8)
[2017-12-21 05:57] LABS: ALT (SGPT) 61 U/L (8-55); AST (SGOT) 57 U/L (5-34); Albumin 3.8 g/dL (3.5-5.0); Alkaline Phosphatase 61 U/L (40-150); Anion Gap 11 mmol/L (10-20); BUN (Urea Nitrogen) 29 mg/dL (8.4-25.7); Bilirubin, Total 1.2 mg/dL (0.2-1.2); Calc. Creatinine Clearance 148 mL/min (70-130); Calcium 8.9 mg/dL (7.8-10.44); Carbon Dioxide 27 mmol/L (22-29); Chloride 105 mmol/L (98-107); Estimated GFR-MDRD Greater than 90; Globulin 2.9 g/dL (2.4-3.5); Glucose 141 mg/dL (70-105); Potassium 4.4 mmol/L (3.5-5.1); Protein, Total 6.7 g/dL (6.0-8.3); Sodium 139 mmol/L (136-145)
--- NOTE | 2017-12-21 07:09 | PDOC.FM ---
- Subjective Subjective: Patient feels much better after his surgery this morning. He has been using the BARRER AND TACKER pump for pain and for sleep. He reports that he has continued to pass gas since his surgery and had a watery BM. He tolerated a clear liquid diet last night without any N/V. He is breathing much easier. - Objective MAR Reviewed: Yes Vital Signs & Weight: Vital Signs (12 hours) Temp Pulse Resp BP Pulse Ox 12/21/17 06:19 98.0 F 80 18 151/98 H 94 L 12/21/17 01:12 98.7 F 72 20 139/87 92 L 12/20/17 21:23 98.3 F 74 18 131/85 94 L 12/20/17 20:00 98.7 F 88 16 Weight Admit Weight 104.3 kg Weight 104.3 kg I&O: 12/20/17 12/21/17 12/22/17 06:59 06:59 06:59 Intake Total 700 Output Total 300 Balance 400 Result Diagrams: 12/21/17 05:20 12/21/17 05:20 <Steph Reynoso - Last Filed: 12/21/17 07:08> - Objective Vital Signs & Weight: Vital Signs (12 hours) Temp Pulse Resp BP BP Pulse Ox 12/21/17 07:49 97.8 F 80 18 138/70 92 L 12/21/17 06:19 98.0 F 80 18 151/98 H 94 L 12/21/17 01:12 98.7 F 72 20 139/87 92 L Weight Admit Weight 104.3 kg Weight 104.3 kg I&O: 12/20/17 12/21/17 12/22/17 06:59 06:59 06:59 Intake Total 700 Output Total 300 Balance 400 Result Diagrams: 12/21/17 05:20 12/21/17 05:20 <Lux Carter - Last Filed: 12/21/17 10:39> Phys Exam - Physical Examination Constitutional: NAD HEENT: moist MMs Respiratory: no wheezing, no rales, no rhonchi, clear to auscultation bilateral Cardiovascular: RRR, no significant murmur, no rub Gastrointestinal: soft, no distention, positive bowel sounds appropriately tender to palpation, incision c/d/i Musculoskeletal: no edema, pulses present Neurological: non-focal, moves all 4 limbs Psychiatric: normal affect, A&O x 3 Skin: no rash, cap refill <2 seconds <Steph Reynoso - Last Filed: 12/21/17 07:08> Dx/Plan (1) Acute pancreatitis Code(s): K85.90 - ACUTE PANCREATITIS WITHOUT NECROSIS OR INFECTION, UNSP Status: Acute QualifierTitle: Pancreatitis type: biliary Acute pancreatitis complication: unspecified Qualified Code(s): K85.10 - Biliary acute pancreatitis without necrosis or infection (2) Ileus Code(s): K56.7 - ILEUS, UNSPECIFIED Status: Acute (3) HTN (hypertension) Code(s): I10 - ESSENTIAL (PRIMARY) HYPERTENSION Status: Chronic QualifierTitle: Hypertension type: essential hypertension Qualified Code( s): I10 - Essential (primary) hypertension (4) Hypokalemia Code(s): E87.6 - HYPOKALEMIA Status: Acute (5) GERD (gastroesophageal reflux disease) Code(s): K21.9 - GASTRO-ESOPHAGEAL REFLUX DISEASE WITHOUT ESOPHAGITIS Status: Chronic QualifierTitle: Esophagitis presence: esophagitis presence not specified Qualified Code(s): K21.9 - Gastro-esophageal reflux disease without esophagitis - Plan Plan: 1. Gallstone pancreatitis s/p ERCP. Duodenal ulcers were biopsied. Sphincter dilation performed. s/p Lap craig on 12/20. - s/p 7 days of levaquin, has been d/c'd - Will monitor vitals and CBC for signs of infection - Monitor I/O - Ransons at 48 hours - 2 - BARRER AND TACKER pump for pain, transition to PO pain meds - Encouraged ambulation - ADAT 2. Ileus Likely 2/2 ERCP and opioid use. Resolved - GI on board, appreciate recs - BARRER AND TACKER back on board s/p lap craig. Will monitor closely for signs/symptoms of an ileus - Encourage ambulation, Walking program 3. HTN - elevated dt pain - monitor vitals as above - PRN hydralazine 4. Hypokalemia Resolved - Continue to monitor Dispo: d/c home likely later today or tomorrow pending pt tolerating regular diet, on PO pain meds, off O2, ambulating without difficulty. Will follow general surgery recs <Steph Reynoso - Last Filed: 12/21/17 07:08> Attending Addendum - Attending Addendum Date/Time: 12/21/17 1037 I personally evaluated the patient and discussed the management with Dr. Reynoso. I agree with the History, Examination, Assessment and Plan documented above with any addition or exceptions noted below. Patient doing well POD1 from lap craig. His is off supplemental O2. Reports good diet toleration this morning and good bowel sounds with passing gas and some liquid stool. Encourage ambulation. If can get off BARRER AND TACKER pain control and onto oral meds today, potential discharge home after clearance by surgery. Leukocytosis likely 2/2 post surgical inflammation, afebrile. <Lux Carter - Last Filed: 12/21/17 10:39>
[2017-12-21] MEDS ORDERED: Polyethylene Glycol 3350 17 GM Packet PO SCH (09:00)
[2017-12-21] MEDS ORDERED: traMADol HCl 50 MG TAB PO PRN ×2 (10:14→10:15)
[2017-12-21] MEDS ORDERED: HYDROcodone/Acetaminophen 10/325 mg Tablet PO PRN (10:16)
[2017-12-21] MEDS ORDERED: Fentanyl 100 MCG/2 ML VIAL SLOW IVP PRN (10:17)
[2017-12-21] MEDS ORDERED: DC PCA Order Set 1 EACH FS ONE (10:50)
--- NOTE | 2017-12-21 10:50 | PRG ---
DATE OF SERVICE: 12/21/2017 SUBJECTIVE: Mr. Burger is feeling well today. 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 He is going to get up and ambulate soon. OBJECTIVE: Afebrile, normal vital signs. White count is a little bit elevated at 18.2. Other blood counts are stable. Electrolytes are unrem arkable. AST and ALT are mildly elevated at 57 and 61, but other LFTs are in normal range. Incision s are clean, dry, and intact. He has some minimal mei-incisional tenderness which is appropriate. ASSESSMENT: Status post laparoscopic cholecystectomy yesterday for gallstone pancreatitis. He had E HEDIS NURSE earlier in his hospital stay. He appears to be progressing well from a surgical standpoint. He is appropriate to discharge home if he tolerates advancement of diet and if his pain is controlled on oral medications. He can follow up with Dr. Longoria in 2 weeks' time. He was advised to avoid heavy lifting over 20 pounds.
[2017-12-21] MEDS: HYDROcodone/Acetaminophen 10/325 mg Tablet PO PRN ×2 (13:41→17:20)
[2017-12-21 18:28] VITALS: BP 142/90; TEMP 98.1
[2017-12-21] MEDS: Melatonin 3 MG TAB PO SCH (19:33)
[2017-12-21] MEDS: Enoxaparin Sodium 40 MG/0.4 ML SYRINGE SC SCH (19:33)
--- NOTE | 2017-12-23 09:42 | DIS-2 ---
DATE OF ADMISSION: 12/12/2017 DATE OF DISCHARGE: 12/21/2017 ADMITTING RESIDENT: Maritza Leger DO DISCHARGE RESIDENT: Steph Reynoso MD ADMITTING ATTENDING: Essie Jackson MD DISCHARGE ATTENDING: Lux Carter MD CONSULTATIONS 1. Dr. Cadena with Gastroenterology. 2. Dr. Longoria with General Surgery. PROCEDURES: 1. ERCP with balloon dilatation, biopsy, and sphincterotomy on 12/14/2017. 2. Left subclavian vein triple-lumen catheter placement on 12/17/2017. 3. Laparoscopic cholecystectomy on 12/20/2017. PRIMARY DIAGNOSES: 1. Acute gallstone pancreatitis. 2. Ileus. 3. Hypokalemia. SECONDARY DIAGNOSIS: Hypertension. DISCHARGE MEDICATION: Tramadol 50 mg p.o. q.6 hours p.r.n. pain. DISCONTINUED MEDICATIONS: None. HISTORY OF PRESENT ILLNESS/HOSPITAL COURSE: This is a 52-year-old male who presented due to severe a bdominal pain in the epigastric region that was described as a sharp stabbing pain. The patient was found to have an elevated lipase to 2184. He also had initial elevated LFTs with a total bilirubin o f 2.6, AST of 308, ALT of 242, and alkaline phosphatase of 71. The patient was found on abdominal ul trasound to have numerous gallstones. The patient underwent an ERCP with balloon dilatation and had some relief after this. He initially was made n.p.o., but his diet was advanced to clears. However, after the ERCP, the patient developed an ileus and this was likely secondary to the opioid use and p ossibly from the ERCP. The patient was given a DOUBLE CUT SAWYER pump and was again made n.p.o. The patient had a n NG tube placed with gastric decompression, but had no relief from this as well. On 12/17/2017, a c entral line was placed and then on 12/18/2017, the patient was started on TPN as the patient had been n.p.o. for about a week. The patient was taken off the DOUBLE CUT SAWYER pump as he was using it predominantly fo r sleep, and he was given non-opioids for pain control and the patient passed gas overnight on 2017. The patient then had a bowel movement on 12/19/2017. He reports that he had significant impro vement in his pain at this time. The patient then had a laparoscopic cholecystectomy done on 018 and postop continued to improve. He continued to pass gas after his laparoscopic cholecystectomy and continued to have bowel movements. His postop course was unremarkable. He was tolerating p.o. and pain was well controlled on oral pain medications. The patient was discharged home on 12/21/2017 . DISPOSITION: Stable. DISCHARGE INSTRUCTIONS: 1. Location: Home. 2. Diet: Low fat. 3. Activity: As tolerated. 4. Follow up with Dr. Longoria within 2-3 weeks and with PCP within 1-2 weeks.
== END 2017-12-21 21:35 | disposition home or self-care (01) | DRG 418 ==
LOC: SCSER 19:00 → T4-A 22:11
PROVIDERS: ADMIT Student in an Organized Health Care Education/Training Program; ATTEND Student in an Organized Health Care Education/Training Program
PROC: 0FC98ZZ Extirpation of Matter from Common Bile Duct, Via Natural or Artificial Opening Endoscopic (ICD-10-PCS; 2017-12-14)
PROC: 0DB98ZX Excision of Duodenum, Via Natural or Artificial Opening Endoscopic, Diagnostic (ICD-10-PCS; 2017-12-14)
PROC: 0DB68ZX Excision of Stomach, Via Natural or Artificial Opening Endoscopic, Diagnostic (ICD-10-PCS; 2017-12-14)
PROC: 0D798ZZ Dilation of Duodenum, Via Natural or Artificial Opening Endoscopic (ICD-10-PCS; 2017-12-14)
PROC: 05H633Z Insertion of Infusion Device into Left Subclavian Vein, Percutaneous Approach (ICD-10-PCS; 2017-12-17)
PROC: 0FT44ZZ Resection of Gallbladder, Percutaneous Endoscopic Approach (ICD-10-PCS; principal; 2017-12-20)
DX: K85.10 Biliary acute pancreatitis without necrosis or infection (principal); K31.5 Obstruction of duodenum; E46 Unspecified protein-calorie malnutrition; K56.7 Ileus, unspecified; K80.62 Calculus of gallbladder and bile duct with acute cholecystitis without obstruction; K26.9 Duodenal ulcer, unspecified as acute or chronic, without hemorrhage or perforation; K21.9 Gastro-esophageal reflux disease without esophagitis; I10 Essential (primary) hypertension; E87.6 Hypokalemia
CPT/HCPCS: 36415; 36416; 71045; 74018; 74019; 74178; 74330; 76705; 80048; 80053; 80061; 81003; 81015; 82550; 82553; 83615; 83690; 83735; 84100; 84478; 84484; 85025; 88304; 88305; 88312; 90471; 90682; 93005; 96361; 96374; 96375; J2270; A4216; C9113; G0008; G8987-GO-CI; G8988-GO-CI; G8989-GO-CI; J0131; J0670; J1100; J1200; J1610; J1642; J1650; J1815; J1885; J1940; J1956; J2001; J2405; J2704; J3010; J3480; J7050; P9047; Q2036; Q9961; S0028